=== PATIENT | male | born 1950 | race Asian ===

== ENCOUNTER 2019-12-28 16:27 | Inpatient (IN) | payer OTHER, MEDICAID ==
[~2019-12-28] VITALS: Ht 185.4 cm; Wt 78.0 kg
--- NOTE | 2019-12-28 16:32 | NUR ---
art capilla here for psych eval.
[2019-12-28] MEDS ORDERED: CLONIDINE HCL 0.2 MG TABLET PO ONE (17:00)
[2019-12-28] MEDS ORDERED: CLONIDINE HCL 0.2 MG TABLET ONE (17:02)
[2019-12-28] MEDS ORDERED: CLON0.1T PO (17:20)
[2019-12-28] MEDS ORDERED: SIMV-46 PO (17:20)
[2019-12-28] MEDS ORDERED: AMMO385C4 TP ×2 (17:20)
[2019-12-28] MEDS ORDERED: AMLO5TAB9 PO (17:20)
[2019-12-28] MEDS ORDERED: INSU100V7 SQ (17:20)
[2019-12-28] MEDS ORDERED: CHOL500050 PO (17:20)
[2019-12-28] MEDS ORDERED: QUET25TA PO ×2 (17:20)
[2019-12-28] MEDS ORDERED: LISI40TA4 PO (17:20)
[2019-12-28] MEDS ORDERED: GLIP5TAB13 PO (17:20)
[2019-12-28] MEDS ORDERED: METF-442 PO (17:20)
[2019-12-28] MEDS ORDERED: HYDR-4077 PO (17:20)
[2019-12-28] MEDS ORDERED: ASPI81TA31 PO (17:20)
[2019-12-28] MEDS ORDERED: CYAN-51 PO (17:20)
[2019-12-28] MEDS ORDERED: METO-358 PO (17:20)
[2019-12-28] MEDS ORDERED: TRAZ-182 PO (17:20)
--- NOTE | 2019-12-28 17:45 | NUR ---
called pt daughter, Tony Estrada, and left a message per pt request
--- NOTE | 2019-12-28 17:55 | NUR ---
pt fall risk, unable to transfer from bed to wheelchair.
--- NOTE | 2019-12-28 18:14 | NUR ---
pt transfered to mhu in stable condition.
[2019-12-28] MEDS ORDERED: BLOOD SUGAR DIAGNOSTIC 1 EACH STRIP VI ONE (18:30)
[2019-12-28] MEDS ORDERED: MAG HYDROX/AL HYDROX/SIMETH 30 ML LIQUID UDC PO PRN (18:30)
[2019-12-28] MEDS ORDERED: MAGNESIUM HYDROXIDE 30 ML LIQUID UDC PO PRN (18:30)
[2019-12-28 18:33] VITALS: BP 151/74
[2019-12-28] MEDS ORDERED: DEXTROSE 50% 50 ML DISP.SYRIN IV PRN (20:15)
[2019-12-28] MEDS ORDERED: hydrALAZINE HCL 50 MG TABLET PO SCH (20:15)
[2019-12-28] MEDS ORDERED: TRAZODONE 50 MG TABLET PO PRN (20:15)
[2019-12-28 20:28] VITALS: BP 110/86
[2019-12-28] MEDS: SIMVASTATIN 20 MG TABLET PO SCH (21:28)
[2019-12-28] MEDS: TEMAZEPAM 7.5 MG CAPSULE PO PRN (21:28)
[2019-12-28] MEDS ORDERED: INSULIN REGULAR, HUMAN 300 UNIT/3 ML VIAL ONE (21:32)
[2019-12-28] MEDS ORDERED: INSULIN GLARGINE,HUM 300 UNITS/3 ML CARTRIDGE SQ ONE (21:33)
[2019-12-28] MEDS: INSULIN REGULAR, HUMAN 300 UNIT/3 ML VIAL SQ PRN (21:41)
[2019-12-28] MEDS: INSULIN GLARGINE,HUM 300 UNITS/3 ML CARTRIDGE SQ SCH (21:46)
[2019-12-28] MEDS: BLOOD SUGAR DIAGNOSTIC 1 EACH STRIP VI SCH (21:47)
[2019-12-28] MEDS: LORAZEPAM 0.5 MG TABLET PO PRN (23:33)
[2019-12-29] MEDS: LORAZEPAM 0.5 MG TABLET PO PRN (06:10)
--- NOTE | 2019-12-29 06:21 | NUR ---
Pt slept 5 hrs, was given restoril and ativan last night, very restless. In the morning another dose of ativan given, pt screaming. Pt now up on gerichair. Blood glucose 127.
[2019-12-29] MEDS: BLOOD SUGAR DIAGNOSTIC 1 EACH STRIP VI SCH ×4 (06:36→22:06)
[2019-12-29] MEDS ORDERED: OLANZAPINE 10 MG VIAL IM ONE ×2 (06:45→13:00)
--- NOTE | 2019-12-29 07:08 | NUR ---
Pt was banging and screaming on top of his lung despite given ativan PO. Dr. Grajeda called and ordered zyprexa 5mg Im x 1. Will continue to monitor.
[2019-12-29 07:24] LABS: BASOPHILS # (AUTO) 0.1 K/uL (0.0-8.0); BASOPHILS % (AUTO) 0.4 % (0.0-2.0); EOSINOPHILS # (AUTO) 0.2 K/uL (0.0-0.7); EOSINOPHILS % (AUTO) 1.3 % (0.0-7.0); HEMATOCRIT 43.4 % (36.7-47.1); LYMPHOCYTES # (AUTO) 1.7 K/uL (20.0-40.0); LYMPHOCYTES % (AUTO) 12.8 % (20.5-51.5); MEAN CORPUSCULAR HEMOGLOBIN 30.2 uug (23.8-33.4); MEAN CORPUSCULAR HGB CONC 35 g/dL (32.5-36.3); MEAN CORPUSCULAR VOLUME 87.2 fL (73.0-96.2); MONOCYTES # (AUTO) 0.9 K/uL (2.0-10.0); MONOCYTES % (AUTO) 6.7 % (0.0-11.0); NEUTROPHILS # (AUTO) 10.4 K/uL (1.8-8.9); NEUTROPHILS % (AUTO) 78.8 % (38.5-71.5); PLATELET COUNT (AUTO) 289 K/uL (152-348); RED BLOOD CELL COUNT(AUTO) 4.97 MIL/uL (4.06-5.63); WHITE BLOOD COUNT (AUTO) 13.1 K/uL (3.6-10.2)
[2019-12-29 07:30] VITALS: BP 180/94
[2019-12-29 07:57] LABS: THYROID STIMULATING HORMONE 3.014 mIU/mL (0.358-3.740)
[2019-12-29] MEDS ORDERED: METFORMIN HCL 500 MG TABLET PO SCH (08:00)
[2019-12-29 08:02] LABS: BILIRUBIN,TOTAL 1.1 mg/dL (0.2-1.0); CREATININE 1.8 mg/dL (0.6-1.3); MAGNESIUM 1.7 mg/dL (1.8-2.4); PHOSPHOROUS 3.4 mg/dL (2.5-4.9); POTASSIUM 3.1 mmol/L (3.5-5.1); TOTAL PROTEIN, SERUM 8.3 g/dL (6.4-8.2)
[2019-12-29] MEDS: ACETAMINOPHEN 325 MG TABLET PO PRN ×2 (08:05→16:52)
[2019-12-29] MEDS: AMLODIPINE 5 MG TABLET PO SCH ×2 (08:06→16:51)
[2019-12-29] MEDS: glipiZIDE 5 MG TABLET PO SCH ×2 (08:06→16:51)
[2019-12-29] MEDS: ASPIRIN 81 MG TAB.CHEW PO SCH (08:07)
[2019-12-29] MEDS: METOPROLOL SUCCINATE XL 50 MG TAB.SR.24H PO SCH (08:07)
[2019-12-29] MEDS: CYANOCOBALAMIN 1,000 MCG TABLET PO SCH (08:07)
[2019-12-29] MEDS ORDERED: hydrALAZINE HCL 50 MG TABLET PO SCH (09:00)
[2019-12-29] MEDS ORDERED: QUETIAPINE FUMARATE 25 MG TABLET PO SCH ×3 (09:00→18:00)
[2019-12-29] MEDS ORDERED: Medication Not On Formulary EA (Metoprolol Succinate 1 TAB) PO SCH (09:00)
[2019-12-29] MEDS ORDERED: LISINOPRIL 20 MG TABLET PO SCH (09:00)
[2019-12-29] MEDS ORDERED: POTASSIUM CHLORIDE 10 MEQ TAB.PRT.SR PO ONE (10:30)
[2019-12-29] MEDS ORDERED: MAGNESIUM OXIDE 400 MG TABLET PO ONE (10:45)
[2019-12-29] MEDS: LORAZEPAM 1 MG TABLET PO PRN (11:38)
[2019-12-29] MEDS: INSULIN REGULAR, HUMAN 300 UNIT/3 ML VIAL SQ PRN ×3 (12:03→22:09)
[2019-12-29] MEDS: DIVALPROEX SPRINKLE 125 MG CAP.SPRINK PO SCH ×2 (12:12→16:52)
[2019-12-29] MEDS: risperiDONE-M 0.5 MG TAB.RAPDIS PO SCH ×2 (12:12→16:51)
[2019-12-29] MEDS: BENZTROPINE MESYLATE 0.5 MG TABLET PO SCH ×2 (12:12→16:52)
--- NOTE | 2019-12-29 12:42 | NUR ---
GPS: Nursing Notes: Severe Agitation: Patient is awake and responding to his name, impaired judgment, unable to be redirected, resistant with nursing care, overly disruptive, constantly shouting and banging on table, trying to roll over the rommel chair, threatening staff, restless behavior, poor anger management, constantly shouting "Ezekiel...Ezekiel", believes that the clark driver that he hired is here to pick him up, forgetful, unable to be redirected, verbal abusive toward staff, Dr. Dey paged by charge nurse, continue to monitor patient.
--- NOTE | 2019-12-29 12:57 | NUR ---
GPS: Nursing Notes: Chemical Restraint: Patient continue to be shouting, verbal abusive toward staff, constantly screaming "Ezekiel...Ezekiel..", believes that her mother is in the next room, paranoid, impaired judgment, resistant with nursing care, internally preoccupied, using profanities toward staff, unable be redirected, restless behavior, pushing staff away when trying to assist him, constantly trying to roll over the rommel chair, Dr. Grajeda called back and ordered Zyprexa 5mg IM, R=20, continue to monitor for safety, continue with treatment plan
--- NOTE | 2019-12-29 13:17 | NUR ---
GPS: Nursing Notes: Reassessment of Chemical Restraint: Patient is awake and responding to his name, patient became calm, stopped shouting, continue to be confused, disorganized, believes that he is leaving today, believes that staff is the hired electric mule driver to take him home, R=20, continue to monitor for safety, continue with treatment plan.
--- NOTE | 2019-12-29 13:39 | NUR ---
CHEYANNE Initial Discharge Note: Patient currently resides [facility] [address] [place] [address] ([phone]). Patient will return upon discharge. Patient's daughter, Tony Briceno/BRITTNEEMARIA DEL ROSARIO ([phone]) in involved in the patient's care. CHEYANNE will continue to work with patient, family, and MD to ensure a safe and proper discharge plan.
--- NOTE | 2019-12-29 13:47 | NUR ---
CHEYANNE Family Contact: Spoke with patient's daughter, Tony Briceno ([phone]) who stated that she is the patient's DPOA and will be sending this feature writer the documentation soon. Tony provided collateral information regarding the patient (see SW's assessment). Tony stated that the patient will be returning to [facility] upon discharge.
--- NOTE | 2019-12-29 13:47 | NUR ---
Social Work Firearms Report (DOJ): Sider completed and submitted a [employer] firearms report for 5150 grave disability certification. A copy of report has been placed in patient chart.
[2019-12-29] MEDS: hydrALAZINE HCL 50 MG TABLET PO SCH ×2 (16:35→22:13)
[2019-12-29 18:38] VITALS: BP 144/78
[2019-12-29 20:30] VITALS: BP 174/78
[2019-12-29] MEDS: SIMVASTATIN 20 MG TABLET PO SCH (22:04)
[2019-12-29] MEDS: INSULIN GLARGINE,HUM 300 UNITS/3 ML CARTRIDGE SQ SCH (22:06)
[2019-12-29] MEDS: TEMAZEPAM 7.5 MG CAPSULE PO PRN (22:30)
--- NOTE | 2019-12-30 03:34 | NUR ---
GPS/ PT RECEIVED UP IN BED, AWAKE AND A/O X1, VERBALLY ABLE TO COMMUNICATE SOME NEEDS BUT DELAY SPEECH DUE TO HX OF CVA. PT LEFT SIDED WEAKNESS AND CONTRACTED UPPER LEFT EXTREMITAS WERE NOTED. SOME AGITATION NOTED WHILE IN BED, PT TRYING TO GET OUT OF BED WITH STRONG SIDE. REPOSITION AND MADE COMFORTABLE. ROUTINE MEDS GIVEN ORDER AND PT COOPERATIVE. BLOOD SUGAR WITHIN LIMIT AND DUE INSULIN ADMINISTERED. NO S/S OF HYPO/HYPERGLYCEMIA. WILL CONTINUE MONITOR AND Q 15MINS HEAD COUNT ONGOING.
[2019-12-30] MEDS: hydrALAZINE HCL 50 MG TABLET PO SCH ×3 (06:16→22:00)
[2019-12-30] MEDS: BLOOD SUGAR DIAGNOSTIC 1 EACH STRIP VI SCH ×4 (06:42→20:23)
--- NOTE | 2019-12-30 06:48 | NUR ---
PT NOTED WITH PARTIAL UPPER DENTURE, REMOVED DUE PT HAVING DIFFICULTY SWALLOWING HIS MEDICATION. REMOVED AND CLEAN, LEFT IN DENTURE CUP BY BEDSIDE TABLE. PT MIGHT BE EVALUATED FOR SWALLOW.
[2019-12-30 07:30] VITALS: BP 127/61
[2019-12-30] MEDS: glipiZIDE 5 MG TABLET PO SCH ×2 (07:30→17:57)
[2019-12-30] MEDS: DIVALPROEX SPRINKLE 125 MG CAP.SPRINK PO SCH ×3 (09:00→17:58)
[2019-12-30] MEDS: ASPIRIN 81 MG TAB.CHEW PO SCH (09:00)
[2019-12-30] MEDS: ISOSORBIDE MONONITRATE 30 MG TAB.SR.24H PO SCH ×2 (09:00→20:20)
[2019-12-30] MEDS: METOPROLOL SUCCINATE XL 50 MG TAB.SR.24H PO SCH (09:00)
[2019-12-30] MEDS: BENZTROPINE MESYLATE 0.5 MG TABLET PO SCH ×2 (09:00→17:57)
[2019-12-30] MEDS: CYANOCOBALAMIN 1,000 MCG TABLET PO SCH (09:00)
[2019-12-30] MEDS: risperiDONE-M 0.5 MG TAB.RAPDIS PO SCH ×3 (09:00→17:59)
[2019-12-30] MEDS: AMLODIPINE 5 MG TABLET PO SCH ×2 (09:00→17:59)
--- NOTE | 2019-12-30 10:31 | NUR ---
0730 am Received patient sound asleep. Respiration even and non labored , no s/s acute distress. Breakfast and mornig medication held until patient is fully awake.
--- NOTE | 2019-12-30 11:11 | NUR ---
CHEYANNE TAYLOR Note: Authorization #[id number] jig worker spoke with Nayeli from [facility] ([phone]) regarding patient's clinicals. Nayeli state that nurse Tati will be the person to contact for ongoing clinical reviews ([phone]). This check writer left a voicemail and is waiting for a return call. Addendum: 12/30/19 at 1327 by KATHIA ALFARO Spoke with Tati ([phone]) and faxed her the patient's clinicals for review (fax: [phone])
[2019-12-30 16:00] VITALS: BP 137/83
[2019-12-30] MEDS: INSULIN REGULAR, HUMAN 300 UNIT/3 ML VIAL SQ PRN ×2 (17:45→20:26)
[2019-12-30 20:15] VITALS: BP 166/94
[2019-12-30] MEDS: SIMVASTATIN 20 MG TABLET PO SCH (20:19)
[2019-12-30] MEDS: INSULIN GLARGINE,HUM 300 UNITS/3 ML CARTRIDGE SQ SCH (20:23)
[2019-12-30] MEDS: TEMAZEPAM 7.5 MG CAPSULE PO PRN (23:00)
--- NOTE | 2019-12-30 23:37 | NUR ---
SNACKS AND PO FLUIDS WAS GIVEN TO PATIENT; HOWEVER, PATIENT CONTINUE REQUESTING SNACKS. HE STATED "JUST LET ME EAT MORE, I AM GOING TO IN THE MORNING, DON'T LET ME HUNGRY". PATIENT WAS REASSURED AND REDIRECTED. PATIENT HAS A H/O DM. WILL CONTINUE TO MONITOR.
[2019-12-31] MEDS: hydrALAZINE HCL 50 MG TABLET PO SCH ×3 (06:00→21:36)
[2019-12-31 06:29] LABS: BASOPHILS # (AUTO) 0.1 K/uL (0.0-8.0); BASOPHILS % (AUTO) 0.7 % (0.0-2.0); EOSINOPHILS # (AUTO) 0.2 K/uL (0.0-0.7); EOSINOPHILS % (AUTO) 1.7 % (0.0-7.0); HEMATOCRIT 30.8 % (36.7-47.1); HEMOGLOBIN 10.7 g/dL (12.5-16.3); LYMPHOCYTES # (AUTO) 1.8 K/uL (20.0-40.0); LYMPHOCYTES % (AUTO) 20.3 % (20.5-51.5); MEAN CORPUSCULAR HEMOGLOBIN 30.4 uug (23.8-33.4); MEAN CORPUSCULAR HGB CONC 35 g/dL (32.5-36.3); MEAN CORPUSCULAR VOLUME 87.3 fL (73.0-96.2); MONOCYTES # (AUTO) 0.8 K/uL (2.0-10.0); MONOCYTES % (AUTO) 9.2 % (0.0-11.0); NEUTROPHILS % (AUTO) 68.1 % (38.5-71.5); PLATELET COUNT (AUTO) 208 K/uL (152-348); RED BLOOD CELL COUNT(AUTO) 3.52 MIL/uL (4.06-5.63); WHITE BLOOD COUNT (AUTO) 8.8 K/uL (3.6-10.2)
[2019-12-31 06:43] LABS: POTASSIUM 3.3 mmol/L (3.5-5.1)
[2019-12-31] MEDS: BLOOD SUGAR DIAGNOSTIC 1 EACH STRIP VI SCH ×4 (06:54→20:25)
[2019-12-31 07:30] VITALS: BP 118/73
[2019-12-31] MEDS: risperiDONE-M 0.5 MG TAB.RAPDIS PO SCH ×3 (08:23→17:41)
[2019-12-31] MEDS: glipiZIDE 5 MG TABLET PO SCH ×2 (08:24→17:42)
[2019-12-31] MEDS: ASPIRIN 81 MG TAB.CHEW PO SCH (08:24)
[2019-12-31] MEDS: DIVALPROEX SPRINKLE 125 MG CAP.SPRINK PO SCH ×3 (08:24→17:41)
[2019-12-31] MEDS: BENZTROPINE MESYLATE 0.5 MG TABLET PO SCH ×2 (08:24→17:41)
[2019-12-31] MEDS: CYANOCOBALAMIN 1,000 MCG TABLET PO SCH (08:24)
[2019-12-31] MEDS: ISOSORBIDE MONONITRATE 30 MG TAB.SR.24H PO SCH ×2 (08:26→20:24)
[2019-12-31] MEDS: INSULIN REGULAR, HUMAN 300 UNIT/3 ML VIAL SQ PRN ×4 (08:29→20:42)
[2019-12-31] MEDS: AMLODIPINE 5 MG TABLET PO SCH ×2 (09:00→17:41)
[2019-12-31] MEDS: METOPROLOL SUCCINATE XL 50 MG TAB.SR.24H PO SCH (09:00)
[2019-12-31] MEDS ORDERED: POTASSIUM CHLORIDE 20 MEQ TAB.PRT.SR PO ONE (09:30)
[2019-12-31] MEDS: LORAZEPAM 1 MG TABLET PO PRN (15:35)
[2019-12-31 16:00] VITALS: BP 143/89
[2019-12-31 20:00] VITALS: BP 166/92
--- NOTE | 2019-12-31 20:10 | NUR ---
RECEIVED PATIENT SITTING IN THE CLARI CHAIR ON THE PHONE. PATIENT IS AWAKE ALERT AND ORIENTED X1.MOOD IS ANXIOUS AND LABILE. AFFECT IS BLUNTED. PATIENT IS COMPLIANT WITH MEDICATIONS. PATIENT IS NEEDY AND ALWAYS ASKING FOR FOOD. BED ALARM IS ON, BED IS LOW AND LOCKED. SAFETY MEASURES AND FALL PRECAUTIONS IN PLACE AND WILL CONTINUE TO MONITOR.
[2019-12-31] MEDS: SIMVASTATIN 20 MG TABLET PO SCH (20:24)
[2019-12-31] MEDS: INSULIN GLARGINE,HUM 300 UNITS/3 ML CARTRIDGE SQ SCH (20:44)
[2019-12-31 21:35] VITALS: BP 170/106
[2019-12-31] MEDS: TEMAZEPAM 7.5 MG CAPSULE PO PRN (22:24)
[2020-01-01] MEDS: LORAZEPAM 1 MG TABLET PO PRN ×2 (03:55→10:18)
--- NOTE | 2020-01-01 04:05 | NUR ---
PATIENT SCREAMING ON THE TOP OF HIS LUNGS AND TRYING TO GET UP OUT OF BED. REORIENTED PATIENT MULTIPLE TIMES TO REALITY. FAILED ATTEMPTS TO REORIENT PATIENT CONTINUED TO BE UNCOOPERATIVE WITH SAFETY MEASURES. PATIENT GIVEN PRN ATIVAN PRN. WILL CONTINUE TO MONITOR.
[2020-01-01 06:28] VITALS: BP 148/86
[2020-01-01] MEDS: hydrALAZINE HCL 50 MG TABLET PO SCH ×3 (06:32→22:34)
[2020-01-01] MEDS: BLOOD SUGAR DIAGNOSTIC 1 EACH STRIP VI SCH ×4 (07:01→21:12)
[2020-01-01 07:24] LABS: BASOPHILS # (AUTO) 0.1 K/uL (0.0-8.0); BASOPHILS % (AUTO) 0.5 % (0.0-2.0); EOSINOPHILS # (AUTO) 0.1 K/uL (0.0-0.7); HEMOGLOBIN 12.9 g/dL (12.5-16.3); LYMPHOCYTES # (AUTO) 1.3 K/uL (20.0-40.0); LYMPHOCYTES % (AUTO) 11.1 % (20.5-51.5); MEAN CORPUSCULAR HEMOGLOBIN 29.8 uug (23.8-33.4); MEAN CORPUSCULAR HGB CONC 34 g/dL (32.5-36.3); MONOCYTES # (AUTO) 0.9 K/uL (2.0-10.0); MONOCYTES % (AUTO) 7.8 % (0.0-11.0); NEUTROPHILS % (AUTO) 79.6 % (38.5-71.5); PLATELET COUNT (AUTO) 236 K/uL (152-348); RED BLOOD CELL COUNT(AUTO) 4.32 MIL/uL (4.06-5.63); WHITE BLOOD COUNT (AUTO) 11.3 K/uL (3.6-10.2)
[2020-01-01 07:30] VITALS: BP 126/86
[2020-01-01 07:37] LABS: BILIRUBIN,TOTAL 0.8 mg/dL (0.2-1.0); CREATININE 1.8 mg/dL (0.6-1.3); MAGNESIUM 2.2 mg/dL (1.8-2.4); PHOSPHOROUS 3.8 mg/dL (2.5-4.9); POTASSIUM 3.2 mmol/L (3.5-5.1); TOTAL PROTEIN, SERUM 7.3 g/dL (6.4-8.2)
[2020-01-01] MEDS: glipiZIDE 5 MG TABLET PO SCH ×2 (09:00→17:22)
[2020-01-01] MEDS: DIVALPROEX SPRINKLE 125 MG CAP.SPRINK PO SCH ×2 (09:00→17:21)
[2020-01-01] MEDS: AMLODIPINE 5 MG TABLET PO SCH ×2 (09:01→17:21)
[2020-01-01] MEDS: CYANOCOBALAMIN 1,000 MCG TABLET PO SCH (09:01)
[2020-01-01] MEDS: ASPIRIN 81 MG TAB.CHEW PO SCH (09:01)
[2020-01-01] MEDS: ISOSORBIDE MONONITRATE 30 MG TAB.SR.24H PO SCH ×2 (09:01→21:30)
[2020-01-01] MEDS: BENZTROPINE MESYLATE 0.5 MG TABLET PO SCH ×2 (09:01→17:22)
[2020-01-01] MEDS: risperiDONE-M 0.5 MG TAB.RAPDIS PO SCH ×3 (09:11→17:21)
[2020-01-01] MEDS ORDERED: DIVALPROEX 250 MG TABLET.DR PO ONE (09:30)
[2020-01-01] MEDS: INSULIN REGULAR, HUMAN 300 UNIT/3 ML VIAL SQ PRN ×3 (09:42→21:26)
[2020-01-01] MEDS ORDERED: POTASSIUM CHLORIDE 10 MEQ TAB.PRT.SR PO ONE (11:15)
[2020-01-01] MEDS ORDERED: OLANZAPINE 10 MG VIAL IM ONE (11:45)
[2020-01-01 13:27] LABS: *BILIRUBIN,URIN NEGATIVE (NEGATIVE); *BLOOD, URINE NEGATIVE (NEGATIVE); *CLARITY,URINE CLEAR (CLEAR); *COLOR,URINE YELLOW (YELLOW); *KETONES,URINE NEGATIVE (NEGATIVE); *UROBILINOGEN,URINE 0.2 E.U./dl (NORMAL); LEUKOCYTE ESTERASE ,URINE NEGATIVE (NEGATIVE); NITRITE, URINE NEGATIVE (NEGATIVE); UGLUCOSE TRACE (NEGATIVE)
[2020-01-01] MEDS: METOPROLOL SUCCINATE XL 50 MG TAB.SR.24H PO SCH (13:28)
[2020-01-01 13:29] LABS: *CREATININE,URINE 51.2 mg/dL (30-125); *URINE TOTAL PROTEIN RANDOM 236.9 mg/dL (<150/24HR)
[2020-01-01] MEDS ORDERED: HALOPERIDOL LACTATE 5 MG/1 ML VIAL IM ONE (14:15)
[2020-01-01] MEDS ORDERED: diphenhydrAMINE 50 MG/1 ML VIAL IM ONE (14:15)
[2020-01-01] MEDS ORDERED: LORAZEPAM 2 MG/1 ML VIAL IM ONE (14:15)
--- NOTE | 2020-01-01 14:40 | NUR ---
Patient still cont. yelling, banging table, pushing table to wall ,angry and throwing empty urinal to staff unable to redirect. Charge nurse called Dr. Grajeda with chemial restraint order, 4455 Hadol 5mg im, ativan 1 mg im and benadryl 25 mg im administered on different syringe. Patient behavior monitored.
[2020-01-01 16:00] VITALS: BP 126/73
[2020-01-01] MEDS ORDERED: risperiDONE 1 MG TABLET PO SCH (17:00)
--- NOTE | 2020-01-01 18:46 | NUR ---
1045 Patient in hallway banging table ,intermitentlly yelling and cursing staff. Redirected patient by bringing him to activity but still on and off yelling and attempt to get out of the chair . Patient is high fall risk and w/c rossi due to Hx. 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 Dr. Grajeda, psychiatrist notified by charge nurse with chemical restraint order. Zyprexa 5 mg im administered as ordered. Patient behavior monitored.
[2020-01-01 20:00] VITALS: BP 143/77
[2020-01-01 20:38] LABS: RBC,URINE 0-3 /HPF (0-3)
[2020-01-01 20:39] LABS: BACTERIA,URINE RARE /HPF (NONE SEEN); SQUAMOUS EPITHELIAL CELL,UR FEW /HPF (NONE SEEN); WBC,URINE 0-3 /HPF (0-3)
[2020-01-01] MEDS: SIMVASTATIN 20 MG TABLET PO SCH (21:29)
[2020-01-01] MEDS: INSULIN GLARGINE,HUM 300 UNITS/3 ML CARTRIDGE SQ SCH (21:29)
--- NOTE | 2020-01-02 04:52 | NUR ---
GPS/ PT RECEIVED IN BED ASLEEP, BREATHING EVEN AND NO SOB NOTED. MONITORING PT PER BEHAVIOR FROM PERVIOUS SHIFT, MEDICATION EFFECTIVE AT THIS TIME. PT STAYING IN BED CALM. BLOOD SUGAR WITHIN PARAMETER AND INUSLIN WAS GIVEN ORDER. CONTINUE MONITOR WITH NO NEW CHANGES NOTD.
[2020-01-02] MEDS: BLOOD SUGAR DIAGNOSTIC 1 EACH STRIP VI SCH ×4 (06:41→20:13)
[2020-01-02] MEDS: hydrALAZINE HCL 50 MG TABLET PO SCH ×3 (06:48→22:28)
[2020-01-02 07:30] VITALS: BP 130/66
[2020-01-02] MEDS: glipiZIDE 5 MG TABLET PO SCH ×2 (07:30→17:26)
[2020-01-02] MEDS: ASPIRIN 81 MG TAB.CHEW PO SCH (09:00)
[2020-01-02] MEDS: CYANOCOBALAMIN 1,000 MCG TABLET PO SCH (09:00)
[2020-01-02] MEDS: risperiDONE 1 MG TABLET PO SCH ×3 (09:00→17:26)
[2020-01-02] MEDS: AMLODIPINE 5 MG TABLET PO SCH ×2 (09:00→17:26)
[2020-01-02] MEDS: ISOSORBIDE MONONITRATE 30 MG TAB.SR.24H PO SCH ×2 (09:00→20:12)
[2020-01-02] MEDS: DIVALPROEX SPRINKLE 125 MG CAP.SPRINK PO SCH ×2 (09:00→17:25)
[2020-01-02] MEDS: METOPROLOL SUCCINATE XL 50 MG TAB.SR.24H PO SCH (09:00)
[2020-01-02] MEDS: BENZTROPINE MESYLATE 0.5 MG TABLET PO SCH ×2 (09:00→17:26)
[2020-01-02 16:54] VITALS: BP 119/71
--- NOTE | 2020-01-02 19:00 | NUR ---
Received patient in his room in bed. He is noted awake A/O x 1. he is noted forgetful. Requesting food, he stated, "I am hungry, really hungry". Snacks and PO fluids were given after Accu check was done with 197 result. mood is labile, affect is irritable. V/S stable at this. patient in reassured for his safety, safety and fall precaution in place. will continue to monitor.
[2020-01-02 19:59] VITALS: BP 145/76
[2020-01-02] MEDS: SIMVASTATIN 20 MG TABLET PO SCH (20:12)
[2020-01-02] MEDS: INSULIN REGULAR, HUMAN 300 UNIT/3 ML VIAL SQ PRN (20:18)
[2020-01-02] MEDS: INSULIN GLARGINE,HUM 300 UNITS/3 ML CARTRIDGE SQ SCH (20:25)
[2020-01-02] MEDS: TEMAZEPAM 7.5 MG CAPSULE PO PRN (22:58)
--- NOTE | 2020-01-02 23:00 | NUR ---
Patient continue asking for food. He is noted hard to redirect. Temazepam 7.5 mg PO PRN was given. will continue to monitor.
[2020-01-03] MEDS: LORAZEPAM 1 MG TABLET PO PRN ×4 (01:43→23:00)
[2020-01-03] MEDS: hydrALAZINE HCL 50 MG TABLET PO SCH ×3 (06:43→22:26)
[2020-01-03] MEDS: BLOOD SUGAR DIAGNOSTIC 1 EACH STRIP VI SCH ×4 (06:44→20:03)
[2020-01-03 07:30] VITALS: BP 146/85
[2020-01-03] MEDS: glipiZIDE 5 MG TABLET PO SCH ×2 (07:30→16:55)
[2020-01-03] MEDS: CYANOCOBALAMIN 1,000 MCG TABLET PO SCH (08:16)
[2020-01-03] MEDS: risperiDONE 1 MG TABLET PO SCH ×3 (08:16→16:53)
[2020-01-03] MEDS: DIVALPROEX SPRINKLE 125 MG CAP.SPRINK PO SCH ×2 (08:17→16:53)
[2020-01-03] MEDS: ISOSORBIDE MONONITRATE 30 MG TAB.SR.24H PO SCH ×2 (08:17→20:02)
[2020-01-03] MEDS: BENZTROPINE MESYLATE 0.5 MG TABLET PO SCH ×2 (08:18→16:53)
[2020-01-03] MEDS: AMLODIPINE 5 MG TABLET PO SCH ×2 (08:18→16:54)
[2020-01-03] MEDS: ASPIRIN 81 MG TAB.CHEW PO SCH (08:18)
[2020-01-03] MEDS: METOPROLOL SUCCINATE XL 50 MG TAB.SR.24H PO SCH (08:19)
[2020-01-03] MEDS: INSULIN REGULAR, HUMAN 300 UNIT/3 ML VIAL SQ PRN ×3 (11:41→20:04)
[2020-01-03 16:00] VITALS: BP 128/69
--- NOTE | 2020-01-03 16:21 | NUR ---
Received patient this am in bed and he was anxious. Patient is very demanding and impulsive. Despite constant reorientation and redirection, this patient is so forgetful and cant remember anything. Staff gave patient a bath and assisted getting patient out of bed to the chair. Patient is eating 100% of his meals. He yells , insults and hollers at staff and other patients all day long. Medicated for anxiety with little effect. Monitoring patient for safety and behavior escalations. Metal Bonding Press Operator unable to have any meaningful conversations with this patient.
[2020-01-03 20:00] VITALS: BP 127/75
--- NOTE | 2020-01-03 20:00 | NUR ---
RECEIVED PATIENT IN THE HALLWAY SITTING IN A CLARI CHAIR CLOSED TO THE NURSING STATION. HE IS NOTED A/O X 1. HE IS NOTED HYPERVERBAL, DISORGANIZED SPEECH, TANGENTAL UNABLE TO HAVE A MEANINGFUL CONVERSATION WITH THIS TELEMETRY TECH. SOMEWHAT REDIRECTABLE. MOOD IS BLUNTED, AFFECT IS LABILE. V/S STABLE AT THIS TIME. PATIENT IN REASSURED FOR HIS SAFETY. SAFETY AND FALL PRECAUTION IN PLACE. WILL CONTINUE TO MONITOR.
[2020-01-03] MEDS: SIMVASTATIN 20 MG TABLET PO SCH (20:03)
[2020-01-03] MEDS: INSULIN GLARGINE,HUM 300 UNITS/3 ML CARTRIDGE SQ SCH (20:05)
[2020-01-03] MEDS: TEMAZEPAM 7.5 MG CAPSULE PO PRN (21:02)
[2020-01-04] MEDS: hydrALAZINE HCL 50 MG TABLET PO SCH ×3 (06:26→22:55)
[2020-01-04] MEDS: BLOOD SUGAR DIAGNOSTIC 1 EACH STRIP VI SCH ×4 (06:30→21:04)
[2020-01-04 07:30] VITALS: BP 174/91
[2020-01-04] MEDS: DIVALPROEX SPRINKLE 125 MG CAP.SPRINK PO SCH ×3 (08:11→16:08)
[2020-01-04] MEDS: AMLODIPINE 5 MG TABLET PO SCH ×2 (08:12→16:08)
[2020-01-04] MEDS: CYANOCOBALAMIN 1,000 MCG TABLET PO SCH (08:12)
[2020-01-04] MEDS: METOPROLOL SUCCINATE XL 50 MG TAB.SR.24H PO SCH (08:12)
[2020-01-04] MEDS: ISOSORBIDE MONONITRATE 30 MG TAB.SR.24H PO SCH ×2 (08:12→21:08)
[2020-01-04] MEDS: ASPIRIN 81 MG TAB.CHEW PO SCH (08:12)
[2020-01-04] MEDS: BENZTROPINE MESYLATE 0.5 MG TABLET PO SCH ×3 (08:12→16:08)
[2020-01-04] MEDS: risperiDONE 1 MG TABLET PO SCH ×3 (08:12→16:08)
[2020-01-04] MEDS: LORAZEPAM 1 MG TABLET PO PRN ×2 (08:17→16:41)
[2020-01-04] MEDS: glipiZIDE 5 MG TABLET PO SCH ×2 (08:17→16:08)
[2020-01-04] MEDS: INSULIN REGULAR, HUMAN 300 UNIT/3 ML VIAL SQ PRN ×3 (11:23→21:09)
[2020-01-04] MEDS: ACETAMINOPHEN 325 MG TABLET PO PRN (12:50)
--- NOTE | 2020-01-04 12:55 | NUR ---
Received patient awake in bed at the start of the shift. Upon a while, patient started screaming- Ativen PRN given. Patient put in the rommel-chair for safety. Patient seen and examined by MD blanco with new psych orders. Patient put near nurse station for safety and further observation. will continue monitor
[2020-01-04 15:22] VITALS: BP 115/67
[2020-01-04] MEDS ORDERED: LORAZEPAM 2 MG/1 ML VIAL IM ONE (17:15)
--- NOTE | 2020-01-04 17:30 | NUR ---
Patient continue screaming to staff and roommate, verbalize unpleasant words despite of education and behavioral management. Refuse participates in activities, disturbing other patients. Patient hitting staff during transfer from bed to rommel-chair. MD Grajeda notified. ordered ativan 0.5ml IM given. will continue monitor for safety.
--- NOTE | 2020-01-04 18:52 | NUR ---
GPS S/P CHEMICAL RESTRAINT: Around 630pm, Patient became calm after 30mins after giving medication, no screaming and verbally abuse observed. Patient speaks in calmly manner. Patient respiration is within normal limit-18. no complaint of pain/discomfort noted. will continue monitor
[2020-01-04 20:00] VITALS: BP 113/62
[2020-01-04] MEDS: SIMVASTATIN 20 MG TABLET PO SCH (21:08)
[2020-01-04] MEDS: INSULIN GLARGINE,HUM 300 UNITS/3 ML CARTRIDGE SQ SCH (21:09)
[2020-01-04] MEDS: TEMAZEPAM 7.5 MG CAPSULE PO PRN (22:55)
[2020-01-05] MEDS: LORAZEPAM 1 MG TABLET PO PRN (03:04)
[2020-01-05] MEDS: hydrALAZINE HCL 50 MG TABLET PO SCH ×3 (06:25→21:52)
[2020-01-05] MEDS: BLOOD SUGAR DIAGNOSTIC 1 EACH STRIP VI SCH ×4 (06:35→21:34)
[2020-01-05 07:30] VITALS: BP 154/84
[2020-01-05] MEDS: ASPIRIN 81 MG TAB.CHEW PO SCH (08:28)
[2020-01-05] MEDS: DIVALPROEX SPRINKLE 125 MG CAP.SPRINK PO SCH (08:28)
[2020-01-05] MEDS: METOPROLOL SUCCINATE XL 50 MG TAB.SR.24H PO SCH (08:29)
[2020-01-05] MEDS: BENZTROPINE MESYLATE 0.5 MG TABLET PO SCH ×4 (08:30→17:00)
[2020-01-05] MEDS: AMLODIPINE 5 MG TABLET PO SCH ×2 (08:30→17:00)
[2020-01-05] MEDS: risperiDONE 1 MG TABLET PO SCH ×4 (08:30→21:00)
[2020-01-05] MEDS: CYANOCOBALAMIN 1,000 MCG TABLET PO SCH (08:30)
[2020-01-05] MEDS: ISOSORBIDE MONONITRATE 30 MG TAB.SR.24H PO SCH ×2 (08:32→21:00)
[2020-01-05] MEDS: glipiZIDE 5 MG TABLET PO SCH ×2 (08:48→16:30)
[2020-01-05] MEDS: busPIRone 5 MG TABLET PO SCH ×3 (09:45→17:00)
[2020-01-05 10:06] LABS: BASOPHILS % (AUTO) 0.2 % (0.0-2.0); EOSINOPHILS % (AUTO) 0.2 % (0.0-7.0); HEMATOCRIT 37.1 % (36.7-47.1); HEMOGLOBIN 12.4 g/dL (12.5-16.3); LYMPHOCYTES # (AUTO) 0.7 K/uL (20.0-40.0); LYMPHOCYTES % (AUTO) 5.7 % (20.5-51.5); MEAN CORPUSCULAR HEMOGLOBIN 29.6 uug (23.8-33.4); MEAN CORPUSCULAR HGB CONC 34 g/dL (32.5-36.3); MEAN CORPUSCULAR VOLUME 88.3 fL (73.0-96.2); MONOCYTES # (AUTO) 0.5 K/uL (2.0-10.0); MONOCYTES % (AUTO) 3.8 % (0.0-11.0); NEUTROPHILS # (AUTO) 10.7 K/uL (1.8-8.9); NEUTROPHILS % (AUTO) 90.1 % (38.5-71.5); PLATELET COUNT (AUTO) 221 K/uL (152-348); RED BLOOD CELL COUNT(AUTO) 4.21 MIL/uL (4.06-5.63); WHITE BLOOD COUNT (AUTO) 11.9 K/uL (3.6-10.2)
[2020-01-05 10:30] LABS: BILIRUBIN,TOTAL 0.7 mg/dL (0.2-1.0); CREATININE 1.8 mg/dL (0.6-1.3); TOTAL PROTEIN, SERUM 7.2 g/dL (6.4-8.2)
--- NOTE | 2020-01-05 10:48 | NUR ---
UR NOTE: CHEYANNE faxed clinicals to case yelena Martines with [facility] [employer] ( ) for review.
--- NOTE | 2020-01-05 10:54 | NUR ---
FAMILY CONTACT: CHEYANNE received a call from pt daughter/DPOA, Tony Estrada, ([phone]) requesting updated progress information on pts behavior and medication. SW informed her that pt received an IM yesterday due to pts aggressive/paranoid behavior. CHEYANNE provided daughter with pts diagnosis and educated pt on treatment, medication, and diagnosis. SW also educated daughter on her access to medical records and information. CHEYANNE provided daughter with MD's contact number for coordination of care and treatment.
[2020-01-05] MEDS: INSULIN REGULAR, HUMAN 300 UNIT/3 ML VIAL SQ PRN ×2 (12:25→21:34)
[2020-01-05] MEDS: OXCARBAZEPINE 150 MG TABLET PO SCH ×2 (13:00→17:00)
[2020-01-05 16:11] VITALS: BP 160/78
--- NOTE | 2020-01-05 18:37 | NUR ---
RECEIVED PATIENT IS ASLEEP MOST OF SHIFT ,HOLD MEDICATION UA SENT TO LAB WAITING FOR RESULT,VSS, CLOSE MONITORING.
[2020-01-05 18:54] LABS: *CLARITY,URINE HAZY (CLEAR); *COLOR,URINE LIGHT YELLOW (YELLOW)
[2020-01-05 18:55] LABS: *BILIRUBIN,URIN NEGATIVE (NEGATIVE); *BLOOD, URINE NEGATIVE (NEGATIVE); *KETONES,URINE NEGATIVE (NEGATIVE); *UROBILINOGEN,URINE 0.2 E.U./dl (NORMAL); NITRITE, URINE NEGATIVE (NEGATIVE); UGLUCOSE 100 (NEGATIVE)
[2020-01-05 18:56] LABS: LEUKOCYTE ESTERASE ,URINE NEGATIVE (NEGATIVE)
[2020-01-05 19:01] LABS: BACTERIA,URINE MODERATE /HPF (NONE SEEN); RBC,URINE 0-3 /HPF (0-3); SQUAMOUS EPITHELIAL CELL,UR NONE SEEN /HPF (NONE SEEN); WBC,URINE 0-3 /HPF (0-3)
[2020-01-05 19:02] LABS: URINE AMORPHOUS URATE MANY /HPF
[2020-01-05 20:22] VITALS: BP 156/76
[2020-01-05] MEDS: INSULIN GLARGINE,HUM 300 UNITS/3 ML CARTRIDGE SQ SCH (21:00)
[2020-01-05] MEDS: SIMVASTATIN 20 MG TABLET PO SCH (21:00)
--- NOTE | 2020-01-05 21:54 | NUR ---
Received pt sleeping in bed. Pt arousable to touch but would go back to sleep immediately. Unable to give meds due to pt's condition as there is high risk for aspiration related to CVA and sleepiness. Accucheck of 113, no regular insulin coverage as per sliding scale. Held Lantus as pt does not eat and move. Safety measures maintained. Will continue to monitor.
--- NOTE | 2020-01-06 01:31 | NUR ---
Pt woke up and feeling hungry. Food given and assisted pt in eating. Continue to monitor.
[2020-01-06 05:51] VITALS: BP 136/71
[2020-01-06] MEDS: hydrALAZINE HCL 50 MG TABLET PO SCH ×3 (06:07→21:40)
[2020-01-06] MEDS: BLOOD SUGAR DIAGNOSTIC 1 EACH STRIP VI SCH ×4 (06:33→20:17)
[2020-01-06 07:30] VITALS: BP 162/99
[2020-01-06] MEDS: ISOSORBIDE MONONITRATE 30 MG TAB.SR.24H PO SCH ×2 (08:17→20:15)
[2020-01-06] MEDS: METOPROLOL SUCCINATE XL 50 MG TAB.SR.24H PO SCH (08:17)
[2020-01-06] MEDS: CYANOCOBALAMIN 1,000 MCG TABLET PO SCH (08:17)
[2020-01-06] MEDS: ASPIRIN 81 MG TAB.CHEW PO SCH (08:18)
[2020-01-06] MEDS: AMLODIPINE 5 MG TABLET PO SCH ×2 (08:18→17:38)
[2020-01-06] MEDS: busPIRone 5 MG TABLET PO SCH ×3 (08:18→17:37)
[2020-01-06] MEDS: BENZTROPINE MESYLATE 0.5 MG TABLET PO SCH ×3 (08:18→17:37)
[2020-01-06] MEDS: glipiZIDE 5 MG TABLET PO SCH ×2 (08:18→17:37)
[2020-01-06] MEDS: OXCARBAZEPINE 150 MG TABLET PO SCH ×2 (08:20→12:37)
[2020-01-06] MEDS: INSULIN REGULAR, HUMAN 300 UNIT/3 ML VIAL SQ PRN ×4 (08:25→20:23)
[2020-01-06] MEDS: LORAZEPAM 1 MG TABLET PO PRN (10:28)
--- NOTE | 2020-01-06 11:46 | NUR ---
FAMILY CONTACT: CHEYANNE contacted pt daughter/DPOA, Tony Estrada, ([phone]) and left a voicemail informing her pt will be discharged on Saturday01/10/20. CHEYANNE requested a call back to coordinate discharge.
[2020-01-06] MEDS: risperiDONE 1 MG TABLET PO SCH ×3 (12:38→20:15)
[2020-01-06 16:00] VITALS: BP 117/68
[2020-01-06] MEDS: OXCARBAZEPINE 300 MG TABLET PO SCH (17:37)
[2020-01-06 20:12] VITALS: BP 142/87
[2020-01-06] MEDS: SIMVASTATIN 20 MG TABLET PO SCH (20:15)
[2020-01-06] MEDS: INSULIN GLARGINE,HUM 300 UNITS/3 ML CARTRIDGE SQ SCH (20:21)
--- NOTE | 2020-01-06 22:33 | NUR ---
Received patient in bed, alert and oriented x 1, medication compliant. Poor insight and poor judgement. Interacts with staff. No sign or symptom of respiratory distress, breathing even. Unlabored. No indication of pain or discomfort. No behavioral issue. Patient will remain in a psych facility for further evaluation and treatment.
[2020-01-07] MEDS: TEMAZEPAM 7.5 MG CAPSULE PO PRN (01:30)
[2020-01-07] MEDS: hydrALAZINE HCL 50 MG TABLET PO SCH ×3 (06:03→22:08)
[2020-01-07 07:12] LABS: BASOPHILS % (AUTO) 0.4 % (0.0-2.0); EOSINOPHILS # (AUTO) 0.1 K/uL (0.0-0.7); EOSINOPHILS % (AUTO) 1.3 % (0.0-7.0); HEMATOCRIT 38.3 % (36.7-47.1); LYMPHOCYTES # (AUTO) 1.4 K/uL (20.0-40.0); LYMPHOCYTES % (AUTO) 15.2 % (20.5-51.5); MEAN CORPUSCULAR HEMOGLOBIN 30.2 uug (23.8-33.4); MEAN CORPUSCULAR HGB CONC 34 g/dL (32.5-36.3); MONOCYTES # (AUTO) 0.8 K/uL (2.0-10.0); MONOCYTES % (AUTO) 8.9 % (0.0-11.0); NEUTROPHILS # (AUTO) 6.9 K/uL (1.8-8.9); NEUTROPHILS % (AUTO) 74.2 % (38.5-71.5); PLATELET COUNT (AUTO) 230 K/uL (152-348); WHITE BLOOD COUNT (AUTO) 9.3 K/uL (3.6-10.2)
[2020-01-07 07:30] VITALS: BP 165/87
[2020-01-07 07:36] LABS: BILIRUBIN,TOTAL 0.7 mg/dL (0.2-1.0); CREATININE 1.8 mg/dL (0.6-1.3); MAGNESIUM 2.4 mg/dL (1.8-2.4); PHOSPHOROUS 3.7 mg/dL (2.5-4.9); POTASSIUM 3.4 mmol/L (3.5-5.1); TOTAL PROTEIN, SERUM 7.7 g/dL (6.4-8.2)
[2020-01-07] MEDS: BLOOD SUGAR DIAGNOSTIC 1 EACH STRIP VI SCH ×4 (07:58→20:47)
[2020-01-07] MEDS: ISOSORBIDE MONONITRATE 30 MG TAB.SR.24H PO SCH ×2 (08:21→20:39)
[2020-01-07] MEDS: glipiZIDE 5 MG TABLET PO SCH ×2 (08:21→17:07)
[2020-01-07] MEDS: METOPROLOL SUCCINATE XL 50 MG TAB.SR.24H PO SCH (08:22)
[2020-01-07] MEDS: LORAZEPAM 1 MG TABLET PO PRN ×2 (08:23→22:46)
[2020-01-07] MEDS: OXCARBAZEPINE 150 MG TABLET PO SCH ×2 (08:23→14:14)
[2020-01-07] MEDS: CYANOCOBALAMIN 1,000 MCG TABLET PO SCH (08:23)
[2020-01-07] MEDS: AMLODIPINE 5 MG TABLET PO SCH ×2 (08:23→17:10)
[2020-01-07] MEDS: busPIRone 5 MG TABLET PO SCH ×3 (08:23→17:07)
[2020-01-07] MEDS: ASPIRIN 81 MG TAB.CHEW PO SCH (08:23)
[2020-01-07] MEDS: BENZTROPINE MESYLATE 0.5 MG TABLET PO SCH ×3 (08:23→17:07)
[2020-01-07 13:00] VITALS: BP 153/70
--- NOTE | 2020-01-07 13:14 | NUR ---
FAMILY CONTACT: SW contacted pt daughter/DPOA, Tony Estrada, ([phone]) for discharge coordination. Daughter stated she will pick pt up on Saturday01/11/20 after 4:30pm and transport him to [facility].
--- NOTE | 2020-01-07 13:55 | NUR ---
UR NOTE: CHEYANNE faxed clinicals to case yelena Martines with [facility] [employer] ( ) for review.
[2020-01-07] MEDS: risperiDONE 1 MG TABLET PO SCH (14:14)
[2020-01-07] MEDS: INSULIN REGULAR, HUMAN 300 UNIT/3 ML VIAL SQ PRN ×3 (14:21→20:53)
[2020-01-07] MEDS ORDERED: POTASSIUM CHLORIDE 10 MEQ TAB.PRT.SR PO ONE (15:00)
[2020-01-07] MEDS ORDERED: BENZTROPINE MESYLATE 2 MG/2 ML AMPUL IM ONE (15:30)
[2020-01-07] MEDS ORDERED: LORAZEPAM 2 MG/1 ML VIAL IM ONE (15:30)
[2020-01-07] MEDS ORDERED: HALOPERIDOL LACTATE 5 MG/1 ML VIAL IM ONE (15:30)
--- NOTE | 2020-01-07 15:54 | NUR ---
Patient noted very agitated and screaming continuously calling on names. RN pest management supervisor informed Dr. Grajeda with an order to administer Ativan, Haldol and Benztropine as ordered. Rn sup administered ordered with a help of 2 nurses. Patient tolerating medication well. Still noted screaming at this time. Safety measures in place and will continue with care.
[2020-01-07 16:38] VITALS: BP 153/70
[2020-01-07] MEDS: OXCARBAZEPINE 300 MG TABLET PO SCH (17:07)
--- NOTE | 2020-01-07 18:15 | NUR ---
Patient is AAO x 1, no acute distress noted. Patient noted being very confused, screaming and and yelling out family names and staff. Vital signs stable for patient. NO s/sx that indicated pain during shift. Due medications administered during shift. Ativan 1mg PO PRN administered for agitation during shift. Patient is with max assist for care Skin kept clean and dry. Assisted with feeding. Safety measures in place, needs attended, bed on lowest position for safety and will continue with care.
[2020-01-07] MEDS: SIMVASTATIN 20 MG TABLET PO SCH (20:39)
[2020-01-07] MEDS: INSULIN GLARGINE,HUM 300 UNITS/3 ML CARTRIDGE SQ SCH (20:54)
[2020-01-07 21:07] VITALS: BP 141/80
--- NOTE | 2020-01-07 22:46 | NUR ---
GPS: Patient very agitated and screaming . Ativan 1 mg po given. Safety measures in place and will continue with care.
--- NOTE | 2020-01-07 23:46 | NUR ---
PATIENT IS CALM NOW. RESTING IN BED. PRN EFFECTIVE.
[2020-01-08] MEDS: hydrALAZINE HCL 50 MG TABLET PO SCH ×3 (05:48→22:40)
[2020-01-08] MEDS: BLOOD SUGAR DIAGNOSTIC 1 EACH STRIP VI SCH ×4 (06:38→21:31)
--- NOTE | 2020-01-08 07:01 | NUR ---
REMAIN YELLING ON AND OFF THROUGH THE NIGHT. SLEPT 2.45 HRS ONLY. ASSISTED WITH ADL'S. RESTING IN BED COMFORTABLY. CONTINUE PLAN OF CARE.
[2020-01-08 07:30] VITALS: BP 145/87
[2020-01-08 07:51] LABS: BILIRUBIN,TOTAL 0.7 mg/dL (0.2-1.0); CREATININE 1.7 mg/dL (0.6-1.3); POTASSIUM 3.1 mmol/L (3.5-5.1); TOTAL PROTEIN, SERUM 6.4 g/dL (6.4-8.2)
[2020-01-08] MEDS: AMLODIPINE 5 MG TABLET PO SCH ×3 (08:17→17:00)
[2020-01-08] MEDS: glipiZIDE 5 MG TABLET PO SCH ×3 (08:17→16:30)
[2020-01-08] MEDS: CYANOCOBALAMIN 1,000 MCG TABLET PO SCH ×2 (08:17→11:02)
[2020-01-08] MEDS: busPIRone 5 MG TABLET PO SCH ×4 (08:17→17:00)
[2020-01-08] MEDS: OXCARBAZEPINE 150 MG TABLET PO SCH ×2 (08:17→11:02)
[2020-01-08] MEDS: ASPIRIN 81 MG TAB.CHEW PO SCH ×2 (08:17→11:02)
[2020-01-08] MEDS: BENZTROPINE MESYLATE 0.5 MG TABLET PO SCH ×4 (08:18→17:00)
[2020-01-08] MEDS: METOPROLOL SUCCINATE XL 50 MG TAB.SR.24H PO SCH ×2 (08:25→10:55)
[2020-01-08] MEDS ORDERED: POTASSIUM CHLORIDE 10 MEQ TAB.PRT.SR PO ONE (10:30)
[2020-01-08] MEDS: ISOSORBIDE MONONITRATE 30 MG TAB.SR.24H PO SCH ×2 (11:02→21:29)
--- NOTE | 2020-01-08 12:06 | NUR ---
FACILITY CONTACT: CHEYANNE contacted Itzel, servicenow administrator [facility] [address] [place] [address] to inform her pt will be discharged on Saturday01/11/20, she states that she spoke with pts daughter to inform her that the only way she will accept pt back to the facility is if pt is placed in a private room. Itzel stated that daughter will get back to her as there is a de la cruz difference. CHEYANNE will fax clinical information to Itzel for review.
[2020-01-08] MEDS: INSULIN REGULAR, HUMAN 300 UNIT/3 ML VIAL SQ PRN (12:31)
[2020-01-08] MEDS ORDERED: OXCARBAZEPINE 150 MG TABLET PO ONE (13:15)
--- NOTE | 2020-01-08 13:21 | NUR ---
FACILITY CONTACT: CHEYANNE faxed clinicals to Itzel, arts administrator or manager [facility] [address] [place], [place] [address] .
--- NOTE | 2020-01-08 14:46 | NUR ---
medications due at 1300 buspsr 5 mg po and cogentin 0. mg not administered, too closed to morning dose.
[2020-01-08 15:35] VITALS: BP 100/47
[2020-01-08] MEDS: OXCARBAZEPINE 300 MG TABLET PO SCH (17:00)
[2020-01-08] MEDS: HALOPERIDOL 5 MG TABLET PO SCH (17:00)
[2020-01-08] MEDS ORDERED: POTASSIUM CHLORIDE 20 MEQ TAB.PRT.SR PO ONE (19:30)
[2020-01-08 20:00] VITALS: BP 152/89
[2020-01-08] MEDS: INSULIN GLARGINE,HUM 300 UNITS/3 ML CARTRIDGE SQ SCH (21:30)
[2020-01-08] MEDS: SIMVASTATIN 20 MG TABLET PO SCH (21:31)
--- NOTE | 2020-01-09 03:25 | NUR ---
GPS: PT ONGOING MONITOR PER BEHAVIOR. RECEIVED PT ASLEEP, AWAKE TO TOUCH AND NAME. V/S WITHIN NORMAL AND DUE MEDICATIONS GIVEN. PT BLOOD SUGAR WITHIN PARAMETER. DUE INSULIN GIVEN ORDER AND NO S/S OF SIDE EFFECT. PT COMFORTABLE. NOTED SOME BEHAVIOR OF YELLING AND BANGING ON BEDSIDE TABLE. ABLE TO REDIRECT, CONTINUE MONITOR. PT IS CALM AND LYING AT THIS TIME NOW.
[2020-01-09] MEDS: hydrALAZINE HCL 50 MG TABLET PO SCH ×3 (06:00→22:00)
[2020-01-09] MEDS: BLOOD SUGAR DIAGNOSTIC 1 EACH STRIP VI SCH ×4 (06:42→21:30)
[2020-01-09 07:30] VITALS: BP 131/77
[2020-01-09] MEDS ORDERED: OXCARBAZEPINE 150 MG TABLET PO SCH (08:00)
[2020-01-09] MEDS: ISOSORBIDE MONONITRATE 30 MG TAB.SR.24H PO SCH ×2 (08:36→21:34)
[2020-01-09] MEDS: ASPIRIN 81 MG TAB.CHEW PO SCH (08:38)
[2020-01-09] MEDS: HALOPERIDOL 5 MG TABLET PO SCH ×3 (08:38→17:42)
[2020-01-09] MEDS: busPIRone 5 MG TABLET PO SCH ×3 (08:38→17:37)
[2020-01-09] MEDS: glipiZIDE 5 MG TABLET PO SCH ×2 (08:38→17:38)
[2020-01-09] MEDS: AMLODIPINE 5 MG TABLET PO SCH ×2 (08:39→17:38)
[2020-01-09] MEDS: BENZTROPINE MESYLATE 0.5 MG TABLET PO SCH ×3 (08:40→17:39)
[2020-01-09] MEDS: INSULIN REGULAR, HUMAN 300 UNIT/3 ML VIAL SQ PRN ×4 (08:45→21:38)
[2020-01-09 10:38] LABS: BASOPHILS # (AUTO) 0.1 K/uL (0.0-8.0); BASOPHILS % (AUTO) 0.5 % (0.0-2.0); EOSINOPHILS # (AUTO) 0.1 K/uL (0.0-0.7); EOSINOPHILS % (AUTO) 1.3 % (0.0-7.0); HEMATOCRIT 31.7 % (36.7-47.1); HEMOGLOBIN 10.6 g/dL (12.5-16.3); LYMPHOCYTES # (AUTO) 1.3 K/uL (20.0-40.0); LYMPHOCYTES % (AUTO) 13.5 % (20.5-51.5); MEAN CORPUSCULAR HEMOGLOBIN 29.7 uug (23.8-33.4); MEAN CORPUSCULAR HGB CONC 34 g/dL (32.5-36.3); MEAN CORPUSCULAR VOLUME 88.7 fL (73.0-96.2); MONOCYTES # (AUTO) 0.8 K/uL (2.0-10.0); MONOCYTES % (AUTO) 8.6 % (0.0-11.0); NEUTROPHILS # (AUTO) 7.4 K/uL (1.8-8.9); NEUTROPHILS % (AUTO) 76.1 % (38.5-71.5); PLATELET COUNT (AUTO) 208 K/uL (152-348); RED BLOOD CELL COUNT(AUTO) 3.57 MIL/uL (4.06-5.63); WHITE BLOOD COUNT (AUTO) 9.7 K/uL (3.6-10.2)
[2020-01-09 10:56] LABS: CREATININE 1.9 mg/dL (0.6-1.3); MAGNESIUM 2.1 mg/dL (1.8-2.4); PHOSPHOROUS 3.8 mg/dL (2.5-4.9)
[2020-01-09 16:00] VITALS: BP 133/67
[2020-01-09 20:00] VITALS: BP 127/78
[2020-01-09] MEDS: OXCARBAZEPINE 150 MG TABLET PO SCH (21:33)
[2020-01-09] MEDS: SIMVASTATIN 20 MG TABLET PO SCH (21:33)
[2020-01-09] MEDS: INSULIN GLARGINE,HUM 300 UNITS/3 ML CARTRIDGE SQ SCH (21:45)
--- NOTE | 2020-01-10 05:49 | NUR ---
GPS: PT COOPERATIVE WITH CARE, NO BEHAVIOR NOTED. BLOOD SUGAR WITHIN PARAMETER AND DUE INSULINS GIVEN ORDER. MONITOR AND KEPT PT RESTING.
[2020-01-10] MEDS: hydrALAZINE HCL 50 MG TABLET PO SCH ×3 (06:10→21:22)
[2020-01-10] MEDS: BLOOD SUGAR DIAGNOSTIC 1 EACH STRIP VI SCH ×4 (06:33→21:00)
[2020-01-10 07:30] VITALS: BP 147/87
[2020-01-10] MEDS: glipiZIDE 5 MG TABLET PO SCH ×2 (09:45→17:33)
[2020-01-10] MEDS: OXCARBAZEPINE 150 MG TABLET PO SCH ×2 (09:46→20:54)
[2020-01-10] MEDS: CYANOCOBALAMIN 1,000 MCG TABLET PO SCH (09:47)
[2020-01-10] MEDS: ASPIRIN 81 MG TAB.CHEW PO SCH (09:47)
[2020-01-10] MEDS: AMLODIPINE 5 MG TABLET PO SCH ×2 (09:48→17:34)
[2020-01-10] MEDS: METOPROLOL SUCCINATE XL 50 MG TAB.SR.24H PO SCH (09:48)
[2020-01-10] MEDS: ISOSORBIDE MONONITRATE 30 MG TAB.SR.24H PO SCH ×2 (09:49→20:55)
[2020-01-10] MEDS: INSULIN REGULAR, HUMAN 300 UNIT/3 ML VIAL SQ PRN ×2 (12:20→17:37)
[2020-01-10] MEDS: busPIRone 5 MG TABLET PO SCH ×2 (12:22→17:34)
[2020-01-10] MEDS: HALOPERIDOL 5 MG TABLET PO SCH ×2 (12:22→17:43)
[2020-01-10] MEDS: BENZTROPINE MESYLATE 0.5 MG TABLET PO SCH ×2 (12:22→17:34)
[2020-01-10 15:24] VITALS: BP 168/88
[2020-01-10 20:31] VITALS: BP 178/84
[2020-01-10] MEDS: SIMVASTATIN 20 MG TABLET PO SCH (20:54)
[2020-01-10] MEDS: INSULIN GLARGINE,HUM 300 UNITS/3 ML CARTRIDGE SQ SCH (20:58)
[2020-01-10] MEDS: TEMAZEPAM 7.5 MG CAPSULE PO PRN (23:01)
[2020-01-11] MEDS: ACETAMINOPHEN 325 MG TABLET PO PRN ×2 (00:17→14:26)
[2020-01-11] MEDS: LORAZEPAM 1 MG TABLET PO PRN ×2 (00:17→14:24)
--- NOTE | 2020-01-11 03:23 | NUR ---
RECEIVED PATIENT IN BED AWAKE BUT HE LATER STARTED CRYING OUT AND YELLING. HE WAS CHANGED AND GIVEN SOME SNACKS WITH HIS MEDICATIONS. BLOOD SUGAR CHECKS WAS WITHIN NORMAL LIMITS. LANTUS GIVEN DIRECTED.ONGOING MONITOR PER BEHAVIOR. LATER NOTED SOME YELLING AND BANGING ON BEDSIDE TABLE AND BED. TAB RESTORIL 7.5MG WAS GIVEN AT 00:15 WIAmolH GOOD EFFECT. WILL CONTINUE TO MONITOR. VISUAL CHECKS MADE ON HIM FOR SAFETY.
[2020-01-11] MEDS: hydrALAZINE HCL 50 MG TABLET PO SCH ×3 (05:53→22:00)
--- NOTE | 2020-01-11 06:25 | NUR ---
SLEPT FOR ONLY 45MINS. HYDRALAZINE 50MG GIVEN AT 06:00 WITH BLOOD PRESSURE BEING 153/82,P.74.BLOOD SUGAR CHECKS 129.
[2020-01-11] MEDS: BLOOD SUGAR DIAGNOSTIC 1 EACH STRIP VI SCH ×4 (06:29→21:02)
[2020-01-11] MEDS: glipiZIDE 5 MG TABLET PO SCH ×2 (06:52→17:08)
[2020-01-11 07:04] LABS: BASOPHILS # (AUTO) 0.1 K/uL (0.0-8.0); BASOPHILS % (AUTO) 0.5 % (0.0-2.0); EOSINOPHILS # (AUTO) 0.1 K/uL (0.0-0.7); EOSINOPHILS % (AUTO) 1.1 % (0.0-7.0); HEMATOCRIT 36.6 % (36.7-47.1); HEMOGLOBIN 12.3 g/dL (12.5-16.3); LYMPHOCYTES # (AUTO) 1.3 K/uL (20.0-40.0); LYMPHOCYTES % (AUTO) 10.3 % (20.5-51.5); MEAN CORPUSCULAR HEMOGLOBIN 29.8 uug (23.8-33.4); MEAN CORPUSCULAR HGB CONC 34 g/dL (32.5-36.3); MEAN CORPUSCULAR VOLUME 88.2 fL (73.0-96.2); MONOCYTES # (AUTO) 1.2 K/uL (2.0-10.0); MONOCYTES % (AUTO) 9.4 % (0.0-11.0); NEUTROPHILS % (AUTO) 78.7 % (38.5-71.5); PLATELET COUNT (AUTO) 208 K/uL (152-348); RED BLOOD CELL COUNT(AUTO) 4.15 MIL/uL (4.06-5.63); WHITE BLOOD COUNT (AUTO) 12.7 K/uL (3.6-10.2)
[2020-01-11 07:24] LABS: CREATININE 1.8 mg/dL (0.6-1.3); MAGNESIUM 1.9 mg/dL (1.8-2.4); PHOSPHOROUS 3.4 mg/dL (2.5-4.9); POTASSIUM 3.5 mmol/L (3.5-5.1)
[2020-01-11 08:30] VITALS: BP 160/96
--- NOTE | 2020-01-11 08:55 | NUR ---
FAMILY CONTACT: SW received a call from pts daughter/DPOA, Tony Estrada, ([phone]) stating that she currently does not have the financial means to place pt in a single room at [facility]. She states that the registered account administrator did not give her enough notice and states that she needs to take him back. Daughter stated that she will be speaking to the Michael EDWARD to express her concerns. SW stated that pt is stable for discharge and discharge can only be delayed one day. Daughter stated she will figure out what to do and return the call to with a discharge update.
--- NOTE | 2020-01-11 08:59 | NUR ---
FACILITY CONTACT: CHEYANNE contacted Itzel, legal administrator [facility] [address] [place] [address] and left a voicemail informing her of pt's daughters concerns. CHEYANNE requested a callback.
--- NOTE | 2020-01-11 09:38 | NUR ---
COORDINATION OF CARE: SW contacted Vicky psychotherapist social worker at [facility] [address] [place] [address] and left a voicemail requesting callback to coordinate aftercare appointments for pt and to inform her and request assistance with pts discharge disposition.
[2020-01-11] MEDS: ASPIRIN 81 MG TAB.CHEW PO SCH (09:47)
[2020-01-11] MEDS: OXCARBAZEPINE 150 MG TABLET PO SCH ×2 (09:48→20:57)
[2020-01-11] MEDS: CYANOCOBALAMIN 1,000 MCG TABLET PO SCH (09:48)
[2020-01-11] MEDS: AMLODIPINE 5 MG TABLET PO SCH ×2 (09:49→17:09)
[2020-01-11] MEDS: METOPROLOL SUCCINATE XL 50 MG TAB.SR.24H PO SCH (09:49)
[2020-01-11] MEDS: ISOSORBIDE MONONITRATE 30 MG TAB.SR.24H PO SCH ×2 (09:51→20:55)
[2020-01-11] MEDS: LISINOPRIL 10 MG TABLET PO SCH (09:54)
--- NOTE | 2020-01-11 11:19 | NUR ---
COORDINATION OF CARE: CHEYANNE received a call from Raya medical social consultant at [address] [address] requesting discharge information. SW informed her of pts discharge disposition and SW stated she will be contacting facility to coordinate discharge and schedule follow up appointments with PCP and psychiatrist.
--- NOTE | 2020-01-11 11:27 | NUR ---
FACILITY CONTACT: CHEYANNE contacted Itzel, mine administrator supervisor [facility] [address] [place] [address] and discussed pts discharge back to the facility. Itzel stated that she will not take pt back unless daughter agrees to pay for a private room. CHEYANNE informed her that daughter is unable to afford a private room at this time and that pt needed to return to his room and if she did not want pt at the facility due to pt being a high risk safety issue and needing a higher level of care she needed to provide daughter with a 30 day notice. Itzel, stated that she needs updated clinical information and new medication orders. CHEYANNE faxed clinicals and medication list to .
--- NOTE | 2020-01-11 11:54 | NUR ---
COORDINATION OF CARE: CHEYANNE contacted Raya rn social work at [facility] [address] [place] [address] and left a voicemail providing her with a pt update, SW requested if pt can be referred to SNF as after meeting with MD and nursing staff it was determined that pt needs a higher level of care and [facility] is not able to meet pts required level of care. CHEYANNE requested callback to discuss placement options.
[2020-01-11] MEDS: busPIRone 5 MG TABLET PO SCH ×2 (12:08→17:08)
[2020-01-11] MEDS: HALOPERIDOL 5 MG TABLET PO SCH ×3 (12:08→20:57)
[2020-01-11] MEDS: BENZTROPINE MESYLATE 0.5 MG TABLET PO SCH ×2 (12:08→17:09)
[2020-01-11] MEDS: INSULIN REGULAR, HUMAN 300 UNIT/3 ML VIAL SQ PRN ×3 (12:11→21:04)
--- NOTE | 2020-01-11 12:59 | NUR ---
COORDINATION OF CARE: SW received a call from Raya medical social worker at [facility] [address] [place] [address] requesting CHEYANNE fax referral to [facility] [address] [place] [address] .
--- NOTE | 2020-01-11 13:00 | NUR ---
SNF REFERRAL: SW faxed SNF referral to [facility] [address] [place] [address] fax: [phone] for review.
--- NOTE | 2020-01-11 13:05 | NUR ---
FAMILY CONTACT: SW contacted pt daughter/DPOA, Tony Estrada, ([phone]) and informed her of current discharge plan and coordination. SW informed her pt was referred to [facility] due to pt requiring a higher level of care. Daughter agreed with plan.
[2020-01-11 15:48] VITALS: BP 118/85
[2020-01-11 17:59] LABS: *BILIRUBIN,URIN NEGATIVE (NEGATIVE); *BLOOD, URINE 2+ (NEGATIVE); *CLARITY,URINE CLEAR (CLEAR); *COLOR,URINE YELLOW (YELLOW); *KETONES,URINE NEGATIVE (NEGATIVE); *UROBILINOGEN,URINE 0.2 E.U./dl (NORMAL); LEUKOCYTE ESTERASE ,URINE TRACE (NEGATIVE); NITRITE, URINE NEGATIVE (NEGATIVE); UGLUCOSE TRACE (NEGATIVE)
[2020-01-11 20:00] VITALS: BP 112/60
[2020-01-11 20:10] LABS: BACTERIA,URINE MANY /HPF (NONE SEEN); RBC,URINE 20-50 /HPF (0-3); SQUAMOUS EPITHELIAL CELL,UR FEW /HPF (NONE SEEN)
[2020-01-11] MEDS: SIMVASTATIN 20 MG TABLET PO SCH (20:55)
[2020-01-11] MEDS: INSULIN GLARGINE,HUM 300 UNITS/3 ML CARTRIDGE SQ SCH (21:02)
--- NOTE | 2020-01-12 00:41 | NUR ---
RECEIVED PATIENT IN CLARI CHAIR IN THE HALLWAY. LATER PUT IN BED AND SOME SNACKS OFFERED WITH HIS MEDS. BLOOD SUGAR LEVELS CHECKED AT 157 AND INSULIN GIVEN PRESCRIBED. HE IS MED COMPLIANT. NO OTHER BEHAVIORAL EPISODES NOTED AT THIS TIME. VISUAL CHECKS MADE ON HIM FOR SAFETY.WILL CONTINUE TO MONITOR.
--- NOTE | 2020-01-12 01:15 | NUR ---
COORDINATION OF CARE: CHEYANNE received a call from Raya social work manager at [facility] [address] [place] [address] informing SW to fax SNF referrals to any SNF. She states that Michael will do ELIF for any facility that accepts pt. Addendum: 01/12/20 at 1409 by JOSE EDWARD ERROR NOTE
[2020-01-12] MEDS: hydrALAZINE HCL 50 MG TABLET PO SCH ×3 (06:00→22:33)
[2020-01-12] MEDS: glipiZIDE 5 MG TABLET PO SCH ×2 (06:35→16:30)
[2020-01-12] MEDS: BLOOD SUGAR DIAGNOSTIC 1 EACH STRIP VI SCH ×4 (06:36→20:45)
--- NOTE | 2020-01-12 06:46 | NUR ---
SLEPT FOR 9:45HOURS. BLOOD SUGAR CHECK 84.
[2020-01-12 07:10] LABS: BASOPHILS # (AUTO) 0.1 K/uL (0.0-8.0); BASOPHILS % (AUTO) 0.7 % (0.0-2.0); EOSINOPHILS # (AUTO) 0.2 K/uL (0.0-0.7); EOSINOPHILS % (AUTO) 1.7 % (0.0-7.0); HEMATOCRIT 30.5 % (36.7-47.1); HEMOGLOBIN 10.6 g/dL (12.5-16.3); LYMPHOCYTES # (AUTO) 1.8 K/uL (20.0-40.0); LYMPHOCYTES % (AUTO) 17.1 % (20.5-51.5); MEAN CORPUSCULAR HEMOGLOBIN 30.4 uug (23.8-33.4); MEAN CORPUSCULAR HGB CONC 35 g/dL (32.5-36.3); MEAN CORPUSCULAR VOLUME 87.5 fL (73.0-96.2); MONOCYTES # (AUTO) 1.1 K/uL (2.0-10.0); MONOCYTES % (AUTO) 10.3 % (0.0-11.0); NEUTROPHILS # (AUTO) 7.5 K/uL (1.8-8.9); NEUTROPHILS % (AUTO) 70.2 % (38.5-71.5); PLATELET COUNT (AUTO) 197 K/uL (152-348); RED BLOOD CELL COUNT(AUTO) 3.48 MIL/uL (4.06-5.63); WHITE BLOOD COUNT (AUTO) 10.7 K/uL (3.6-10.2)
[2020-01-12 07:27] LABS: BILIRUBIN,TOTAL 0.5 mg/dL (0.2-1.0); CREATININE 1.9 mg/dL (0.6-1.3); PHOSPHOROUS 3.7 mg/dL (2.5-4.9); POTASSIUM 3.4 mmol/L (3.5-5.1)
[2020-01-12 07:49] VITALS: BP 119/54
[2020-01-12] MEDS: ISOSORBIDE MONONITRATE 30 MG TAB.SR.24H PO SCH ×2 (09:00→21:00)
[2020-01-12] MEDS: METOPROLOL SUCCINATE XL 50 MG TAB.SR.24H PO SCH (09:00)
--- NOTE | 2020-01-12 10:30 | NUR ---
FACILITY CONTACT: CHEYANNE contacted Itzel, medical care administrator [facility] [address] [place] [address] to inquire on readmission. Per Itzel, she will no longer take pt back as she received a call from Michael stating that pt will be placed at a SNF.
--- NOTE | 2020-01-12 10:36 | NUR ---
SNF CONTACT: CHEYANNE contacted Brit, food service coordinator at [facility] [address] [place] [address] for an update on pts referral, per Brit pt was not accepted to the facility due to facility having COVID pt in the BHU.
--- NOTE | 2020-01-12 10:49 | NUR ---
COORDINATION OF CARE: CHEYANNE contacted Raya, social services technician at [facility] [address] [place] [address] for other SNF options. CHEYANNE informed her that Itzel, mysql database administrator [facility] [address] [place] [address] informed SW that she will no longer take pt back as she received a call from [facility] stating that pt was going to a SNF. CHEYANNE stated that she will be faxing a referral to [facility] ([facility]) [address] [facility] [place] [facility] [place] [address] P: [phone] and Raya agreed.
[2020-01-12] MEDS: ASPIRIN 81 MG TAB.CHEW PO SCH (11:40)
[2020-01-12] MEDS: CYANOCOBALAMIN 1,000 MCG TABLET PO SCH (11:40)
[2020-01-12] MEDS: LISINOPRIL 10 MG TABLET PO SCH (11:41)
[2020-01-12] MEDS: OXCARBAZEPINE 150 MG TABLET PO SCH ×2 (11:42→20:37)
[2020-01-12] MEDS: busPIRone 5 MG TABLET PO SCH ×3 (11:42→17:00)
[2020-01-12] MEDS: AMLODIPINE 5 MG TABLET PO SCH ×2 (11:44→17:00)
[2020-01-12] MEDS: HALOPERIDOL 5 MG TABLET PO SCH ×3 (12:00→20:37)
[2020-01-12] MEDS: BENZTROPINE MESYLATE 0.5 MG TABLET PO SCH ×2 (13:00→17:00)
--- NOTE | 2020-01-12 13:09 | NUR ---
SNF CONTACT: SW received a call from Tootie tissue coordinator at [facility] ([facility]) [address] [place] [place] [address] P: [phone] stating pt has not been accepted to the facility due to pts HMO insurance.
--- NOTE | 2020-01-12 13:12 | NUR ---
COORDINATION OF CARE: SW contacted Raya social media assistant at [facility] [address] [place] [address] and left a voicemail informing her [facility] did not accept pt due to his insurance coverage.
--- NOTE | 2020-01-12 13:15 | NUR ---
COORDINATION OF CARE: CHEYANNE received a call from Raya marriage and family social worker at [facility] [address] [place] [address] informing CHEYANNE to fax SNF referrals to any SNF. She states that Jerrellnazareth will do ELIF for any facility that accepts pt.
[2020-01-12] MEDS: CEphaleXIN 500 MG CAPSULE PO SCH ×2 (14:00→20:37)
--- NOTE | 2020-01-12 14:06 | NUR ---
SNF REFERRALS: SW faxed SNF referrals to the following SNF's: 1. [facility] Address: [address] [place] [address] 2. [facility] (SNF) Address: [address] [place] [address] [facility] (SNF) located at [address] [place] [address]; ([phone]).
[2020-01-12 15:14] VITALS: BP 147/56
--- NOTE | 2020-01-12 15:20 | NUR ---
SNF CONTACT: SW received a call from Larisa e marketing specialist at [facility] Address: [facility] [place] [address] stating that pt was not accepted to the facility due to pts aggressive behavior.
--- NOTE | 2020-01-12 16:13 | NUR ---
patient is too sedated unable to give any medication, BS checked is 149 ,hold insulin sliding scale due to patient is sedated unable to eat his meal.
[2020-01-12 20:30] VITALS: BP 105/69
[2020-01-12] MEDS: SIMVASTATIN 20 MG TABLET PO SCH (20:37)
[2020-01-12] MEDS: INSULIN REGULAR, HUMAN 300 UNIT/3 ML VIAL SQ PRN (20:42)
[2020-01-12] MEDS: INSULIN GLARGINE,HUM 300 UNITS/3 ML CARTRIDGE SQ SCH (20:44)
[2020-01-13] MEDS: hydrALAZINE HCL 50 MG TABLET PO SCH ×3 (06:21→22:30)
[2020-01-13] MEDS: BLOOD SUGAR DIAGNOSTIC 1 EACH STRIP VI SCH ×4 (06:30→20:09)
[2020-01-13 07:30] VITALS: BP 158/81
--- NOTE | 2020-01-13 08:19 | NUR ---
SNF CONTACT: SW received a call from Ratna dental office coordinator at [facility] ([facility]) located at [address] [place] [address]; ([phone]) stating pt was not accepted due to his behavior.
--- NOTE | 2020-01-13 08:35 | NUR ---
SNF REFERRAL: CHEYANNE faxed SNF referral to [facility] Address: [address] [place] [phone] for review.
[2020-01-13] MEDS: CEphaleXIN 500 MG CAPSULE PO SCH ×2 (08:41→20:09)
[2020-01-13] MEDS: glipiZIDE 5 MG TABLET PO SCH ×2 (08:41→17:10)
[2020-01-13] MEDS: CYANOCOBALAMIN 1,000 MCG TABLET PO SCH (08:42)
[2020-01-13] MEDS: ASPIRIN 81 MG TAB.CHEW PO SCH (08:43)
[2020-01-13] MEDS: OXCARBAZEPINE 150 MG TABLET PO SCH ×2 (08:43→20:09)
[2020-01-13] MEDS: METOPROLOL SUCCINATE XL 50 MG TAB.SR.24H PO SCH (08:44)
[2020-01-13] MEDS: LISINOPRIL 10 MG TABLET PO SCH (08:44)
[2020-01-13] MEDS: busPIRone 5 MG TABLET PO SCH ×3 (08:44→17:10)
[2020-01-13] MEDS: AMLODIPINE 5 MG TABLET PO SCH ×2 (08:45→17:11)
[2020-01-13] MEDS: ISOSORBIDE MONONITRATE 30 MG TAB.SR.24H PO SCH (08:46)
--- NOTE | 2020-01-13 11:54 | NUR ---
UR NOTE: SW received a call from taty Perry with [employer] ( ) stating that she will be taking over pts case and states that she is able to provide a ELIF once pt is accepted to a SNF.
[2020-01-13] MEDS: INSULIN REGULAR, HUMAN 300 UNIT/3 ML VIAL SQ PRN ×3 (12:08→20:14)
--- NOTE | 2020-01-13 12:12 | NUR ---
SNF REFERRAL: CHEYANNE faxed SNF referral to [facility] ([facility]) [id number] [facility] [address] for review.
[2020-01-13] MEDS: BENZTROPINE MESYLATE 0.5 MG TABLET PO SCH ×2 (12:13→17:10)
[2020-01-13] MEDS: HALOPERIDOL 5 MG TABLET PO SCH ×3 (12:13→20:09)
--- NOTE | 2020-01-13 12:51 | NUR ---
SNF CONTACT: SW received a call from Allie admissions director at [facility] ([facility]) [address] [facility] [address] stating pt cannot be accepted to the facility due to facility not being contracted with [facility].
[2020-01-13 16:03] VITALS: BP 137/80
[2020-01-13] MEDS: LORAZEPAM 1 MG TABLET PO PRN (18:55)
[2020-01-13 19:59] VITALS: BP 136/88
[2020-01-13] MEDS: SIMVASTATIN 20 MG TABLET PO SCH (20:10)
[2020-01-13] MEDS: INSULIN GLARGINE,HUM 300 UNITS/3 ML CARTRIDGE SQ SCH (20:24)
[2020-01-13] MEDS: ISOSORBIDE DINITRATE 10 MG TABLET PO SCH (20:26)
[2020-01-14] MEDS: TEMAZEPAM 7.5 MG CAPSULE PO PRN ×2 (00:36→21:41)
--- NOTE | 2020-01-14 00:40 | NUR ---
PATIENT NOTED YELLING AND SCREAMING, WHEN APPROACHED, HE IS NOTED WITH DISORGANIZED SPEECH, HE STATED, "I DON'T WANT TO BE PART OF THIS EXPERIMENT". "IF YOU ARE EXPERIMENTING WITH ME THEN I NEED TO GET PAID". PATIENT IS HARD TO REDIRECT. TEMAZEPAM 7/5 MG PO PRN GIVEN. WILL CONTINUE TO MONITOR.
--- NOTE | 2020-01-14 02:00 | NUR ---
PATIENT NOTED SLEEPING COMFORTABLY. WILL CONTINUE TO MONITOR.
--- NOTE | 2020-01-14 02:30 | NUR ---
PATIENT WAS OBSERVED CALLING FOR HIS SON PETER. WHEN APPROACHED, HE STATED. "BRING HIM HERE" PATIENT NOTED DELUSION, WITH DISORGANIZED SPEECH, RESPONDING TO INTERNAL STIMULI. HE REQUIRED MULTIPLE REDIRECTIONS. PATIENT WAS GIVEN ATIVAN 1MG PO PRN. WILL FIDENCIOUE TO MONITOR,
[2020-01-14] MEDS: LORAZEPAM 1 MG TABLET PO PRN ×4 (02:35→22:56)
[2020-01-14] MEDS: hydrALAZINE HCL 50 MG TABLET PO SCH ×3 (05:55→22:41)
[2020-01-14] MEDS: BLOOD SUGAR DIAGNOSTIC 1 EACH STRIP VI SCH ×4 (06:33→20:23)
[2020-01-14 07:30] VITALS: BP 128/69
[2020-01-14] MEDS: CYANOCOBALAMIN 1,000 MCG TABLET PO SCH (08:41)
[2020-01-14] MEDS: AMLODIPINE 5 MG TABLET PO SCH ×2 (08:41→16:57)
[2020-01-14] MEDS: LISINOPRIL 10 MG TABLET PO SCH (08:41)
[2020-01-14] MEDS: OXCARBAZEPINE 150 MG TABLET PO SCH ×2 (08:41→20:20)
[2020-01-14] MEDS: busPIRone 5 MG TABLET PO SCH ×3 (08:42→16:57)
[2020-01-14] MEDS: ASPIRIN 81 MG TAB.CHEW PO SCH (08:42)
[2020-01-14] MEDS: METOPROLOL SUCCINATE XL 50 MG TAB.SR.24H PO SCH (08:42)
[2020-01-14] MEDS: CEphaleXIN 500 MG CAPSULE PO SCH ×2 (08:42→20:19)
[2020-01-14] MEDS: ISOSORBIDE DINITRATE 10 MG TABLET PO SCH ×2 (08:44→20:20)
[2020-01-14] MEDS: glipiZIDE 5 MG TABLET PO SCH ×2 (09:31→16:57)
--- NOTE | 2020-01-14 09:50 | NUR ---
Gps/Jawbone Breaker-Yelling spells, calling for Nurse, and some help, when asked what kind of help , he said he wants to go home, wants his daughter to come and pick him up, needed to go home per pt. Encouraged to attend his group therapy, discouraged from yelling.
[2020-01-14] MEDS: INSULIN REGULAR, HUMAN 300 UNIT/3 ML VIAL SQ PRN ×3 (12:37→20:22)
[2020-01-14] MEDS: HALOPERIDOL 5 MG TABLET PO SCH ×3 (12:42→20:20)
[2020-01-14] MEDS: BENZTROPINE MESYLATE 0.5 MG TABLET PO SCH ×2 (12:42→16:56)
--- NOTE | 2020-01-14 13:32 | NUR ---
UR NOTE: SW received a call from case yelena Perry with [facility] [employer] ( ) stated that patient is not accepted at [facility]. Per Vicky, she stated that [facility] is reconsidering and will follow-up with manager case management.
[2020-01-14 16:23] VITALS: BP 119/80
[2020-01-14] MEDS: SIMVASTATIN 20 MG TABLET PO SCH (20:19)
[2020-01-14] MEDS: INSULIN GLARGINE,HUM 300 UNITS/3 ML CARTRIDGE SQ SCH (20:23)
[2020-01-14 20:28] VITALS: BP 174/86
[2020-01-15] MEDS: hydrALAZINE HCL 50 MG TABLET PO SCH ×3 (06:58→21:19)
[2020-01-15] MEDS: BLOOD SUGAR DIAGNOSTIC 1 EACH STRIP VI SCH ×4 (06:59→20:56)
[2020-01-15 07:06] LABS: BASOPHILS # (AUTO) 0.1 K/uL (0.0-8.0); BASOPHILS % (AUTO) 0.5 % (0.0-2.0); EOSINOPHILS # (AUTO) 0.2 K/uL (0.0-0.7); EOSINOPHILS % (AUTO) 1.5 % (0.0-7.0); HEMATOCRIT 32.9 % (36.7-47.1); HEMOGLOBIN 11.4 g/dL (12.5-16.3); LYMPHOCYTES # (AUTO) 1.7 K/uL (20.0-40.0); LYMPHOCYTES % (AUTO) 15.1 % (20.5-51.5); MEAN CORPUSCULAR HEMOGLOBIN 30.2 uug (23.8-33.4); MEAN CORPUSCULAR HGB CONC 35 g/dL (32.5-36.3); MEAN CORPUSCULAR VOLUME 87.6 fL (73.0-96.2); MONOCYTES # (AUTO) 1.1 K/uL (2.0-10.0); MONOCYTES % (AUTO) 9.8 % (0.0-11.0); NEUTROPHILS # (AUTO) 8.1 K/uL (1.8-8.9); NEUTROPHILS % (AUTO) 73.1 % (38.5-71.5); PLATELET COUNT (AUTO) 225 K/uL (152-348); RED BLOOD CELL COUNT(AUTO) 3.76 MIL/uL (4.06-5.63)
[2020-01-15 07:30] VITALS: BP 151/73
[2020-01-15 07:33] LABS: BILIRUBIN,TOTAL 0.5 mg/dL (0.2-1.0); MAGNESIUM 2.2 mg/dL (1.8-2.4); PHOSPHOROUS 4.7 mg/dL (2.5-4.9); POTASSIUM 3.4 mmol/L (3.5-5.1); TOTAL PROTEIN, SERUM 6.6 g/dL (6.4-8.2)
[2020-01-15] MEDS: METOPROLOL SUCCINATE XL 50 MG TAB.SR.24H PO SCH (08:26)
[2020-01-15] MEDS: OXCARBAZEPINE 150 MG TABLET PO SCH ×2 (08:26→21:19)
[2020-01-15] MEDS: CYANOCOBALAMIN 1,000 MCG TABLET PO SCH (08:27)
[2020-01-15] MEDS: LISINOPRIL 10 MG TABLET PO SCH (08:27)
[2020-01-15] MEDS: busPIRone 5 MG TABLET PO SCH ×3 (08:27→16:56)
[2020-01-15] MEDS: AMLODIPINE 5 MG TABLET PO SCH ×2 (08:28→16:57)
[2020-01-15] MEDS: ASPIRIN 81 MG TAB.CHEW PO SCH (08:28)
[2020-01-15] MEDS: CEphaleXIN 500 MG CAPSULE PO SCH ×2 (08:29→20:47)
[2020-01-15] MEDS: glipiZIDE 5 MG TABLET PO SCH ×2 (08:49→16:57)
[2020-01-15] MEDS: ISOSORBIDE DINITRATE 10 MG TABLET PO SCH ×2 (09:28→20:47)
[2020-01-15] MEDS ORDERED: POTASSIUM CHLORIDE 20 MEQ POWDER PACKET PO ONE (12:00)
[2020-01-15] MEDS: INSULIN REGULAR, HUMAN 300 UNIT/3 ML VIAL SQ PRN ×3 (12:01→20:57)
[2020-01-15] MEDS: HALOPERIDOL 5 MG TABLET PO SCH ×3 (12:54→20:47)
[2020-01-15] MEDS: BENZTROPINE MESYLATE 0.5 MG TABLET PO SCH ×2 (12:55→16:56)
--- NOTE | 2020-01-15 14:46 | NUR ---
Social Work Individual Therapy: remelt worker met with patient for brief counseling to address patient's aggressive and combative behavior. Patient is not cooperative with this technical report writer and is unable to have meaningful conversation due to his cognitive impairment. Patient is confused and disoriented and does not know where he is at. Patient was unable to have proper eye contact. This technical report writer attempted to educate patient on the importance of developing strategies for coping with frustrating situations. Patient was not receptive.
--- NOTE | 2020-01-15 15:21 | NUR ---
Social Work Family Contact: monitor worker spoke with DPOA daughter Tony ([phone]) that she is aware of patient's discharge and that insurance [facility] has been in contact with her. Per Tony, she will pick and shovel worker patient upon discharge.
--- NOTE | 2020-01-15 15:42 | NUR ---
Social Work Family Contact: FACTORY ASSEMBLER Luli Walters advised UZAIR Jimenez ([phone]) that patient is a fall risk and very confused and that this hospital recommends medical transportation. However, [facility]ZA[facility] Jimenez insisted that they want to pick pt. up and transport him upon discharge with a wheelchair and with her brother.
--- NOTE | 2020-01-15 15:52 | NUR ---
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 distress. skin warm and dry to touch. Assisted with his fluid intake, offered.
[2020-01-15 16:00] VITALS: BP 112/47
--- NOTE | 2020-01-15 18:56 | NUR ---
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 Report was given to Leslie Welch.Patient was well informed.
--- NOTE | 2020-01-15 20:00 | NUR ---
RECEIVED PATIENT FROM [facility]. ALERT TO SELF. SITTER AT BEDSIDE. VSS. WILL CONTINUE TO MONITOR AND ASSESS.
[2020-01-15 20:13] VITALS: BP 132/66
[2020-01-15] MEDS: SIMVASTATIN 20 MG TABLET PO SCH (20:47)
[2020-01-15] MEDS: INSULIN GLARGINE,HUM 300 UNITS/3 ML CARTRIDGE SQ SCH (20:58)
--- NOTE | 2020-01-15 22:55 | NUR ---
Hand off report received from Nurse Bola
--- NOTE | 2020-01-16 05:00 | NUR ---
Patient slept 5 hours this shift with 1:1 sitter at bedside. Pt was compliant with all aspects of care provided by this nurse and medical staff this shift. All medications provided as ordered and tolerated well, with no adverse side effects noted/observed by this nurse. All safety, fall, and GPS precautions remain in place.
[2020-01-16] MEDS: hydrALAZINE HCL 50 MG TABLET PO SCH ×3 (06:19→22:44)
[2020-01-16] MEDS: BLOOD SUGAR DIAGNOSTIC 1 EACH STRIP VI SCH ×4 (06:42→21:17)
[2020-01-16 07:15] VITALS: BP 143/91
[2020-01-16] MEDS: glipiZIDE 5 MG TABLET PO SCH ×2 (07:29→16:11)
[2020-01-16] MEDS: busPIRone 5 MG TABLET PO SCH ×3 (07:30→16:11)
--- NOTE | 2020-01-16 08:10 | NUR ---
Patient in bed, awake and calm. No signs of distress noted. No SOB. No complain of Pain or discomfort. No SI/HI noted. Patient on 1:1 sitter. kept clean and comfortable. Will continue to monitor.
[2020-01-16] MEDS: CEphaleXIN 500 MG CAPSULE PO SCH (08:30)
[2020-01-16] MEDS: CYANOCOBALAMIN 1,000 MCG TABLET PO SCH (08:30)
[2020-01-16] MEDS: OXCARBAZEPINE 150 MG TABLET PO SCH (08:39)
[2020-01-16] MEDS: AMLODIPINE 5 MG TABLET PO SCH ×2 (08:44→16:16)
[2020-01-16] MEDS: ISOSORBIDE DINITRATE 10 MG TABLET PO SCH ×2 (08:44→20:56)
[2020-01-16] MEDS: LISINOPRIL 10 MG TABLET PO SCH (08:44)
[2020-01-16] MEDS: METOPROLOL SUCCINATE XL 50 MG TAB.SR.24H PO SCH (08:45)
[2020-01-16] MEDS: ASPIRIN 81 MG TAB.CHEW PO SCH (09:04)
[2020-01-16] MEDS: HALOPERIDOL 5 MG TABLET PO SCH ×3 (11:10→20:57)
[2020-01-16] MEDS: INSULIN REGULAR, HUMAN 300 UNIT/3 ML VIAL SQ PRN ×3 (11:11→21:03)
[2020-01-16] MEDS: BENZTROPINE MESYLATE 0.5 MG TABLET PO SCH ×2 (12:34→16:11)
[2020-01-16 14:33] VITALS: BP 107/55
--- NOTE | 2020-01-16 18:07 | NUR ---
Patient in bed, intermittently sleeping. No episode of Aggressive behavior, Patient is calm, No SI/HI noted. On 1:1 sitter for safety. No signs of distress noted. Afebrile. No complain of Pain or discomfort. Kept clean and comfortable. Will endorse to Oncoming Nurse.
[2020-01-16 19:20] VITALS: BP 124/67
--- NOTE | 2020-01-16 20:00 | NUR ---
Patient received into care laying in bed resting with 1:1 sitter at side. Patient alert/oriented x2 and has no complaints of pain or discomfort at this time. All safety, fall, and GPS precautions are in place. Will continue to monitor and assess.
[2020-01-16] MEDS: OXCARBAZEPINE 300 MG TABLET PO SCH (20:56)
[2020-01-16] MEDS: AMOXICILLIN-CLAVUL 875-125MG TABLET PO SCH (20:56)
[2020-01-16] MEDS: SIMVASTATIN 20 MG TABLET PO SCH (20:58)
[2020-01-16] MEDS: INSULIN GLARGINE,HUM 300 UNITS/3 ML CARTRIDGE SQ SCH (21:02)
[2020-01-16] MEDS: ACETAMINOPHEN 325 MG TABLET PO PRN (21:32)
[2020-01-16] MEDS: TEMAZEPAM 7.5 MG CAPSULE PO PRN (22:44)
[2020-01-17] MEDS: LORAZEPAM 1 MG TABLET PO PRN ×2 (01:09→17:22)
--- NOTE | 2020-01-17 05:00 | NUR ---
Patient slept 5 hours this shift with 1:1 sitter at bedside. Pt was compliant with all aspects of care, all nursing needs were met promptly, and pt is warm, dry and comfortable. All prescribed medications were provided as ordered and tolerated well, with no adverse side effects verbalized by patient or noted/observed by this nurse. All safety, fall, and GPS precautions remain in place.
[2020-01-17] MEDS: hydrALAZINE HCL 50 MG TABLET PO SCH ×3 (06:14→22:26)
[2020-01-17] MEDS: BLOOD SUGAR DIAGNOSTIC 1 EACH STRIP VI SCH ×4 (06:48→20:37)
[2020-01-17 07:32] VITALS: BP 129/55
[2020-01-17] MEDS: glipiZIDE 5 MG TABLET PO SCH ×2 (07:59→16:34)
[2020-01-17] MEDS: ASPIRIN 81 MG TAB.CHEW PO SCH (08:08)
[2020-01-17] MEDS: ISOSORBIDE DINITRATE 10 MG TABLET PO SCH ×2 (08:09→20:23)
[2020-01-17] MEDS: LISINOPRIL 10 MG TABLET PO SCH (08:09)
[2020-01-17] MEDS: busPIRone 5 MG TABLET PO SCH ×3 (08:10→16:27)
[2020-01-17] MEDS: METOPROLOL SUCCINATE XL 50 MG TAB.SR.24H PO SCH (08:10)
[2020-01-17] MEDS: AMOXICILLIN-CLAVUL 875-125MG TABLET PO SCH ×2 (08:10→20:22)
[2020-01-17] MEDS: CYANOCOBALAMIN 1,000 MCG TABLET PO SCH (08:10)
[2020-01-17] MEDS: AMLODIPINE 5 MG TABLET PO SCH ×2 (08:10→16:30)
[2020-01-17] MEDS: OXCARBAZEPINE 300 MG TABLET PO SCH ×2 (08:10→20:24)
[2020-01-17] MEDS: INSULIN REGULAR, HUMAN 300 UNIT/3 ML VIAL SQ PRN ×3 (11:51→20:43)
[2020-01-17] MEDS: HALOPERIDOL 5 MG TABLET PO SCH ×3 (12:20→20:24)
[2020-01-17] MEDS: BENZTROPINE MESYLATE 0.5 MG TABLET PO SCH ×2 (12:21→16:27)
[2020-01-17 16:00] VITALS: BP 148/74
--- NOTE | 2020-01-17 19:00 | NUR ---
PATIENT ALERT BUT FORGETFUL NO SOB NO CHEST PAIN, PATIENT IN BED, WITH EPISODE OF RESTLESS AND AGITATION WANTED TO CALL SON OR BROTHER. PATIENT ON 1;1 SITTER, SITTER ASSISTED PATIENT ON DIALING THE PHONE, BUT PHONE LINE OF FAMILY WAS BUSY, AND PATIENT GET AGITATED, ACCUSING STAFF ON MAKING FUN OF HIM, AND NOBODY WAS TRYING TO HELP HIM. PATIENT WAS REDIRECTED BEHAVIOR WITH SOME HELP, CONT TO MONITOR.
[2020-01-17 19:44] VITALS: BP 158/84
--- NOTE | 2020-01-17 19:55 | NUR ---
Pt started to get agitated later in the day, trying to get out of bed, and started screaming. Reoriented but confused. Ativan PRN given as ordered. Pt calmed down, talked to daughter on the phone. On 1:1 sitter. Stable throughout shift. Bed locked in lowest position with siderails 3x up.
[2020-01-17] MEDS: SIMVASTATIN 20 MG TABLET PO SCH (20:24)
[2020-01-17] MEDS: INSULIN GLARGINE,HUM 300 UNITS/3 ML CARTRIDGE SQ SCH (20:42)
--- NOTE | 2020-01-17 22:10 | NUR ---
PATIENT IS STILL AWAKE, THROWS PILLOW OUT ON THE FLOOR, PATIENT REMOVES CLOTHING, PATIENT WAS OFFERED WATER, AND HE DRANK GOOD AMOUNT OF WATER, GIVEN SNACKS ALSO STILL AWAKE, GIVEN PRN RESTORIL ORDERED, CONT TO MONITOR.
[2020-01-17] MEDS: TEMAZEPAM 7.5 MG CAPSULE PO PRN (22:30)
[2020-01-18] MEDS: LORAZEPAM 1 MG TABLET PO PRN ×2 (02:41→17:26)
[2020-01-18] MEDS: ACETAMINOPHEN 325 MG TABLET PO PRN ×2 (02:41→21:28)
--- NOTE | 2020-01-18 03:41 | NUR ---
PATIENT YELLING AND SCREAMING, TRIES TO CLIMBED OUT OF BED, PATIENT HAS SOME HALLUCINATION SAYING THAT THERE PEOPLE AROUND HIM AND IGNORING HIM WITH HIS NEEDS. DANGLE HIS LEGS OVER SIDE RAILS. PATIENT WAS REORIENTED, GIVEN FOOD, WATER, WAS KEPT CLEAN AND DRY BUT NOT EFFECTIVE. PATIENT GIVEN PRN ATIVAN 1MG FOR AGITATION/ANXIETY, PLUS TYLENO 650MG PO FOR PAIN AND DISCOMFORT WITH SOME HELP. CONT 1;1 SITTER, FOR SAFETY
[2020-01-18] MEDS: hydrALAZINE HCL 50 MG TABLET PO SCH ×3 (05:23→23:06)
[2020-01-18] MEDS: BLOOD SUGAR DIAGNOSTIC 1 EACH STRIP VI SCH ×4 (06:05→20:14)
--- NOTE | 2020-01-18 06:22 | NUR ---
PATIENT AWAKE VERBALLY RESPONSIVE, PATIENT SLEPT FOR TWO (2) HOURS ONLY, PATIENT SLEEPY BUT FIGHTING HIS SLEEP. PATIENT STILL HAS MULTIPLE EPISODE OF AGITATION, BOUTS OF YELLING AND SCREAMING, PATIENT WAS KEPT CLEAN DRY, TX DONE ON NELI/R/L BUTTOCKS REDNESS, PATIENT DANGLE HIS FEET OVER BED RISK FOR FALL AND INJURY, CONT 1;1 SITTER FOR SAFETY. CONT TO MONITOR.
[2020-01-18 08:06] VITALS: BP 160/85
[2020-01-18] MEDS: ISOSORBIDE DINITRATE 10 MG TABLET PO SCH ×2 (08:32→20:11)
[2020-01-18] MEDS: ASPIRIN 81 MG TAB.CHEW PO SCH (08:33)
[2020-01-18] MEDS: busPIRone 5 MG TABLET PO SCH ×3 (08:33→17:24)
[2020-01-18] MEDS: METOPROLOL SUCCINATE XL 50 MG TAB.SR.24H PO SCH (08:33)
[2020-01-18] MEDS: CYANOCOBALAMIN 1,000 MCG TABLET PO SCH (08:33)
[2020-01-18] MEDS: LISINOPRIL 10 MG TABLET PO SCH (08:34)
[2020-01-18] MEDS: AMLODIPINE 5 MG TABLET PO SCH ×2 (08:34→17:25)
[2020-01-18] MEDS: AMOXICILLIN-CLAVUL 875-125MG TABLET PO SCH ×2 (08:34→20:10)
[2020-01-18] MEDS: OXCARBAZEPINE 300 MG TABLET PO SCH ×2 (08:34→20:11)
[2020-01-18] MEDS: INSULIN REGULAR, HUMAN 300 UNIT/3 ML VIAL SQ PRN ×3 (08:36→20:25)
[2020-01-18] MEDS: glipiZIDE 5 MG TABLET PO SCH ×2 (08:40→17:24)
--- NOTE | 2020-01-18 11:46 | NUR ---
UR Note: workers compensation analyst spoke with patient's caser Vicky ([phone]) who stated that [facility] is [facility] [address] [facility] [address]; ([phone]). This development writer spoke with admin Santos is aware and agreeable and will accept patient tomorrow ([phone]). This development writer also faxed ([phone]) patient's medication list.
[2020-01-18] MEDS: BENZTROPINE MESYLATE 0.5 MG TABLET PO SCH ×2 (12:25→17:24)
[2020-01-18] MEDS: HALOPERIDOL 5 MG TABLET PO SCH ×3 (12:25→20:11)
--- NOTE | 2020-01-18 12:44 | NUR ---
WOUND CARE CONSULT: PT NOT SEEN FOR SKIN ASSESSMENT DUE TO PT EATING AT THIS TIME. REVIEWED CHART, NURSING DOCUMENTATION AND PHOTOS WHICH SHOW RASH WITH PEELING SKIN TO BUTTOCKS, PRESENT ON ADMISSION. RECOMMENDATIONS MADE FOR SKIN CARE AND PROTECTION. DISCUSSED WITH NURSING STAFF. WILL SEE PRN. POWERS IN AGREEMENT WITH PLAN OF CARE.
--- NOTE | 2020-01-18 13:44 | NUR ---
WOUND CARE: PT SEEN FOR SKIN ASSESSMENT AND NOTED TO HAVE INCONTINENCE ASSOCIATED SKIN DAMAGE TO GLUTEAL CREASE AND LOWER BUTTOCKS IN ADDITION TO RASH ON BUTTOCKS, PRESENT ON ADMISSION. RECOMMENDATIONS MADE AND DISCUSSED WITH NURSING STAFF FOR SKIN CARE AND PROTECTION. WILL SEE PRN. POWERS IN AGREEMENT WITH PLAN OF CARE.
[2020-01-18 14:35] VITALS: BP 196/93
[2020-01-18 17:07] VITALS: BP 175/88
[2020-01-18] MEDS: CLOTRIMAZOLE 1% CREAM 30 GM TUBE TOP SCH (17:25)
--- NOTE | 2020-01-18 18:47 | NUR ---
No acute distress this shift. Pt alert, able to make needs known. Compliant with taking medications crushed in pudding. Pt denies SI/ HI, visual hallucination present, as evident by asking "who the second lady in the room was"? when no such women was there. Order received for rapid Covid19 nasal swab, collected, and sent to lab. Even after explaining sample collection was necessary per D/C placement. Pt became very agitated and aggressive towards staff, cussing and yelling "you traitor"! Ativan administered per PRN orders. Proven effective. All safety and comfort needs attended to throughout the shift. 1:1 sitter remains present at the bedside. Will continue to monitor and endorse to oncoming material handler 1st shift.
--- NOTE | 2020-01-18 19:03 | NUR ---
Rapid Covid19 lab results noted as negative.
[2020-01-18 19:50] VITALS: BP 151/87
[2020-01-18] MEDS: SIMVASTATIN 20 MG TABLET PO SCH (20:10)
[2020-01-18] MEDS: INSULIN GLARGINE,HUM 300 UNITS/3 ML CARTRIDGE SQ SCH (20:23)
[2020-01-18] MEDS: Z GUARD REMEDY PASTE 57 GM TUBE TOP SCH (20:25)
[2020-01-18] MEDS: Z GUARD REMEDY PASTE 57 GM TUBE TOP PRN ×2 (21:00→23:00)
[2020-01-18] MEDS ORDERED: HALOPERIDOL LACTATE 10 MG/5 ML ORAL SOLUTION UDC PO ONE (21:00)
[2020-01-18] MEDS ORDERED: HALOPERIDOL 0.5 MG TABLET PO SCH (21:00)
--- NOTE | 2020-01-18 21:00 | NUR ---
Dr orozco called and ask for update regarding patient behavior, told MD that patient still has episode of yelling and screaming at night, and has little sleep last night despite restoril was given. Md has new order.
[2020-01-18] MEDS: TEMAZEPAM 7.5 MG CAPSULE PO PRN (21:28)
--- NOTE | 2020-01-18 21:57 | NUR ---
Patient new order of Haldol 5mg po hs not given, patient received Haldol 2.5mg plus the one phyllis order of Haldol 2.5mg but Rosio Tavarez
--- NOTE | 2020-01-18 22:12 | NUR ---
Place a call to Selam Choi to clarify haldol medication, order the haldol in liquid form and pharmacy has no haldol in liqid form , gave verbal order to change it to tablet.
[2020-01-18] MEDS ORDERED: HALOPERIDOL 5 MG TABLET PO SCH (22:15)
--- NOTE | 2020-01-18 22:28 | NUR ---
PATIENT STILL AWAKE, RESTLESS IN BED, CONSTANTLY TALKING, TRIES TO CLIMB OUT OF BED BY DANGLING HIS LEGS OVER SIDE RAILS, PATIENT WAS KEPT CLEAN, DRY, GAVE SNACK AND FLUIDS STILL RESTLESS, GIVEN RESTORIL 7.5 MG PLUS TYLENOL FOR PAIN AND COMFORT BUT NOT EFFECTIVE, STILL YELLS, AND RESTLESS. PATIENT EYES CLOSE AND YAWNING BUT HE FIGHTING HIS SLEEP. CONT 1;1; SITTER FOR SAFETY.
[2020-01-19] MEDS: LORAZEPAM 1 MG TABLET PO PRN (00:50)
--- NOTE | 2020-01-19 00:59 | NUR ---
PATIENT STILL AWAKE, TALKING CONTINUOUSLY, REDIRECT BEHAVIOR BUT NOT EFFECTIVE, PATIENT KEPT CLEAN AND DRY, BUT NOT EFFECTIVE, GAVE ATIVAN 1MG PO ORDERED, CONT TO MONITOR.
[2020-01-19] MEDS: Z GUARD REMEDY PASTE 57 GM TUBE TOP PRN (01:00)
--- NOTE | 2020-01-19 05:17 | NUR ---
PATIENT SLEPT FOUR HOURS AND FORTYFIVE MINUTES (4.45 MIN). PATIENT ASLEEP BUT AROUSABLE, TREATMENT CONTINUE ON R AND L BUTTOCKS. CONT 1;1 FOR SAFETY.
[2020-01-19] MEDS: hydrALAZINE HCL 50 MG TABLET PO SCH (06:00)
--- NOTE | 2020-01-19 06:13 | NUR ---
APRESOLINE 50MG HELD PATIENT HEART RATE 51.
[2020-01-19] MEDS: BLOOD SUGAR DIAGNOSTIC 1 EACH STRIP VI SCH ×2 (06:14→12:03)
--- NOTE | 2020-01-19 06:15 | NUR ---
BS 63, GIVEN ORANGE JUICE, PATIENT ASLEEP BUT EASILY AROUSABLE, CONT TO MONITOR.
[2020-01-19 06:17] LABS: BASOPHILS # (AUTO) 0.1 K/uL (0.0-8.0); BASOPHILS % (AUTO) 1.1 % (0.0-2.0); EOSINOPHILS # (AUTO) 0.2 K/uL (0.0-0.7); EOSINOPHILS % (AUTO) 1.9 % (0.0-7.0); HEMATOCRIT 31.8 % (36.7-47.1); LYMPHOCYTES # (AUTO) 1.6 K/uL (20.0-40.0); LYMPHOCYTES % (AUTO) 15.6 % (20.5-51.5); MEAN CORPUSCULAR HEMOGLOBIN 30.2 uug (23.8-33.4); MEAN CORPUSCULAR HGB CONC 34 g/dL (32.5-36.3); MEAN CORPUSCULAR VOLUME 87.8 fL (73.0-96.2); MONOCYTES # (AUTO) 0.8 K/uL (2.0-10.0); NEUTROPHILS # (AUTO) 7.5 K/uL (1.8-8.9); NEUTROPHILS % (AUTO) 73.4 % (38.5-71.5); PLATELET COUNT (AUTO) 273 K/uL (152-348); RED BLOOD CELL COUNT(AUTO) 3.63 MIL/uL (4.06-5.63); WHITE BLOOD COUNT (AUTO) 10.2 K/uL (3.6-10.2)
[2020-01-19 06:29] LABS: BILIRUBIN,TOTAL 0.5 mg/dL (0.2-1.0); CREATININE 1.9 mg/dL (0.6-1.3); MAGNESIUM 2.3 mg/dL (1.8-2.4); POTASSIUM 3.3 mmol/L (3.5-5.1); TOTAL PROTEIN, SERUM 6.4 g/dL (6.4-8.2)
--- NOTE | 2020-01-19 07:30 | NUR ---
Sleeping comfortably. 1:1 sitter at bedside
[2020-01-19 08:28] VITALS: BP 135/59
[2020-01-19] MEDS: busPIRone 5 MG TABLET PO SCH ×2 (08:47→12:12)
[2020-01-19] MEDS: glipiZIDE 5 MG TABLET PO SCH (08:47)
[2020-01-19] MEDS: AMOXICILLIN-CLAVUL 875-125MG TABLET PO SCH (08:48)
[2020-01-19] MEDS: ISOSORBIDE DINITRATE 10 MG TABLET PO SCH (08:48)
[2020-01-19] MEDS: OXCARBAZEPINE 300 MG TABLET PO SCH (08:48)
[2020-01-19] MEDS: LISINOPRIL 10 MG TABLET PO SCH (08:49)
[2020-01-19] MEDS: CYANOCOBALAMIN 1,000 MCG TABLET PO SCH (08:49)
[2020-01-19] MEDS: Z GUARD REMEDY PASTE 57 GM TUBE TOP SCH (08:50)
[2020-01-19] MEDS: CLOTRIMAZOLE 1% CREAM 30 GM TUBE TOP SCH (08:50)
[2020-01-19] MEDS: METOPROLOL SUCCINATE XL 50 MG TAB.SR.24H PO SCH (08:51)
[2020-01-19] MEDS: AMLODIPINE 5 MG TABLET PO SCH (08:54)
[2020-01-19] MEDS: ASPIRIN 81 MG TAB.CHEW PO SCH (08:54)
[2020-01-19] MEDS ORDERED: POTASSIUM CHLORIDE 20 MEQ TAB.PRT.SR PO ONE (10:45)
--- NOTE | 2020-01-19 11:19 | NUR ---
Social Work Discharge Note: Patient [place] be discharged [place] [address] [place] [address]; ([phone]). Patients complex case manager from [facility] ([phone]) arranged ambulance transportation at 12:15PM (#[phone]) ([phone]). Patients daughter Tony DUNNE ([phone]) is aware and agreeable with discharge. Vp Ad Products And Planning spoke with Santos ([phone]) at the facility who states they are ready to accept the patient. Patient is aware and agreeable with discharge plans. Patient is alert and oriented x1-2, is not able to plan for self-care, and denies any suicidal or homicidal ideations. Patient will follow-up with (Pet Training Instructor) Dr. Campbell and (psychiatrist) Dr. Grajeda at the facility. Patient presents with euthymic mood and congruent affect.
[2020-01-19 11:54] VITALS: BP 142/69
[2020-01-19] MEDS ORDERED: HALOPERIDOL 5 MG TABLET PO SCH ×2 (12:00→21:00)
[2020-01-19] MEDS: BENZTROPINE MESYLATE 0.5 MG TABLET PO SCH (12:12)
[2020-01-19] MEDS ORDERED: OXCARBAZEPINE 150 MG TABLET PO SCH (13:00)
--- NOTE | 2020-01-19 13:10 | NUR ---
Discharged to Assisted Living via ambulance, in fair condition, not in distress, afebrile, calm and cooperative with care. No suicidal and homicidal ideation. Medication Rx faxed to pharmacy of choice.
== END 2020-01-19 13:10 | DRG 885 ==
LOC: ER 16:30 → GPS 17:45 → GPSOV3 01-15 18:44
PROVIDERS: ADMIT Psychiatry & Neurology Psychosomatic Medicine; ATTEND Internal Medicine
DX: F25.0 Schizoaffective disorder, bipolar type (principal); F01.50 Vascular dementia, unspecified severity, without behavioral disturbance, psychotic disturbance, mood disturbance, and anxiety; N17.0 Acute kidney failure with tubular necrosis; N18.9 Chronic kidney disease, unspecified; B95.2 Enterococcus as the cause of diseases classified elsewhere; D68.69 Other thrombophilia; F23 Brief psychotic disorder; N39.0 Urinary tract infection, site not specified; I13.0 Hypertensive heart and chronic kidney disease with heart failure and stage 1 through stage 4 chronic kidney disease, or unspecified chronic kidney disease; F29 Unspecified psychosis not due to a substance or known physiological condition; E86.0 Dehydration; E11.22 Type 2 diabetes mellitus with diabetic chronic kidney disease; E11.21 Type 2 diabetes mellitus with diabetic nephropathy; E78.5 Hyperlipidemia, unspecified; E87.6 Hypokalemia; F32.9 Major depressive disorder, single episode, unspecified; F41.9 Anxiety disorder, unspecified; I25.10 Atherosclerotic heart disease of native coronary artery without angina pectoris; Z86.73 Personal history of transient ischemic attack (TIA), and cerebral infarction without residual deficits; Z87.891 Personal history of nicotine dependence; Z73.6 Limitation of activities due to disability; R53.1 Weakness; Z79.84 Long term (current) use of oral hypoglycemic drugs; F60.9 Personality disorder, unspecified; D72.829 Elevated white blood cell count, unspecified; I50.9 Heart failure, unspecified
CPT/HCPCS: 36415; 71045; 76770; 80164; 83605; 83735; 84100; 84156; 84300; 84443; 85025; 87077; 87086; 93005; 93307; A4663; C1758; J0515; J1200; J1630; J1815; J2060; J2358; J3490